=== PATIENT | female | born 1940 | race Caucasian/White ===

== ENCOUNTER 2017-05-26 11:14 | Emergency (ER) | payer MEDICARE, OTHER, SELFPAY ==
[2017-05-26 11:14] VITALS: BP 154/58; PULSE 92; RESP 22; TEMP 37.1; O2SAT 94; BMI 31.1
--- NOTE | 2017-05-26 11:25 | CT_ITS ---
CT head/brain wo con COMPARISON: None HISTORY: Patient fell hitting head, has recurrent falls, mental confusion TECHNIQUE: Multiaxial scans obtained from base skull to the vertex and were performed without IV contrast. FINDINGS: The base of skull is normal, the mastoids are clear. Both internal auditory canals appear normal. There is a tiny mucous retention cyst left maxillary sinus. The basilar cisterns are mildly prominent. The ventricular system is normal. There is no ischemic infarct or bleed and there are no extra-axial fluid collections. There are mild periventricular hypodensities consistent with chronic ischemic white matter changes. The sylvian fissures and cortical sulci are mildly prominent. The bony calvarium is intact. IMPRESSION: Findings of mild age-appropriate cortical atrophy and mild chronic white matter changes, no acute intracranial pathology noted
--- NOTE | 2017-05-26 11:25 | XR_ITS ---
XR chest portable COMPARISON: None HISTORY: Cough TECHNIQUE: Portable upright chest FINDINGS: The lung bird are fairly well-expanded and appear clear of infiltrate. There is blunting of the right costo phrenic angle with minimal pleural scarring along the right lower lateral chest wall cardiac size is normal and the vascularity is normal. IMPRESSION: Nonacute chest findings
[2017-05-26 11:31] LABS: Microscopic, Urine URINE MICROSCOPIC (MICROSCOPIC)
[2017-05-26 11:35] LABS: Basophils % 0.3 % (0.1-2.0); Eosinophils # 0.1 K/mm3 (0.0-0.4); Eosinophils % 0.7 % (0.1-12.0); Hematocrit 41.7 % (37.0-47.0); Hemoglobin 13.8 g/dL (12.2-16.2); Lymphocytes # 1.4 K/mm3 (0.7-4.5); Mean Corpuscular HGB Conc 33.1 g/dL (31.8-35.4); Mean Corpuscular Hemoglobin 30.3 pg (27.0-31.2); Mean Corpuscular Volume 91.6 fl (81-99); Mean Platelet Volume 8.6 fl (7.4-10.4); Monocytes # 0.5 K/mm3 (0.1-1.0); Monocytes % 4.8 % (1.7-9.3); Neutrophils # 8.6 K/mm3 (1.8-7.8); Neutrophils % 81.1 % (37.0-80.0); Platelet Count 225 K/mm3 (142-424); Red Blood Count 4.55 M/mm3 (4.20-5.40); Red Cell Distribution Width 13.5 % (11.5-17.5); White Blood Count 10.7 K/mm3 (4.8-10.8)
[2017-05-26 11:39] LABS: Appearance,Urine CLOUDY (Clear); Bilirubin,Urine Negative (Negative); Blood, Urine Negative (Negative); Color,Urine YELLOW (Yellow); Glucose,Urine (UA) Negative (Negative); Ketones,Urine Negative (Negative); Leukocyte Esterase,Urine 1+ (Negative); Nitrate,Urine POSITIVE (Negative); Protein,Urine TRACE (Negative); Specific Gravity, Urine 1.025 (1.005-1.030); Urobilinogen,Urine 0.2 EU/dl (0.2)
--- NOTE | 2017-05-26 11:45 | PC.NURSE ---
Pt arrived at at this time, reported that he would like to speak with someone regarding prison placement for his . states pt has become increasingly weak over the past year and has been falling more frequently recently. states I can't handle her at home anymore.
[2017-05-26 11:48] LABS: Amorphous Sediment,Urine 1+ /lpf; Bacteria,Urine 3+ /lpf; RBC,Urine Occasional #/hpf (0-3); WBC,Urine 20-50 #/hpf (0-3)
[2017-05-26 11:54] LABS: Alanine Aminotransferase 19 U/L (12-78); Albumin Level 3.8 gm/dL (3.4-5.0); Albumin/Globulin Ratio 1.1 (1.1-1.8); Alkaline Phosphatase 111 U/L (46-116); Anion Gap 11.7 mEq/L (5-15); Aspartate Amino Transferase 19 U/L (15-37); Bilirubin,Total 0.3 mg/dL (0.2-1.0); Blood Urea Nitrogen 27 mg/dL (7-18); Calcium 8.9 mg/dL (8.5-10.1); Carbon Dioxide 28 mmol/L (21.0-32.0); Chloride 108 mmol/L (98-107); Creatinine Clearance Estimated 2 mL/min (0-300); Creatinine,Serum 0.59 mg/dL (0.55-1.02); Estimated Glomerular Filt Rate 99 ml/min (>60); GFR (African American) 119 ML/MIN (>60); Globulin 3.4 gm/dl (1.3-3.2); Glucose 110 mg/dL (74-106); Potassium 3.7 mmoL/L (3.5-5.1); Sodium 144 mmol/L (136-145); Total Protein,Serum 7.2 gm/dL (6.4-8.2)
--- NOTE | 2017-05-26 12:15 | PC.NURSE ---
Dr. Ayala called on CT results at this time, stated Mild Atrophy, nothing acute, notified ER
[2017-05-26 12:16] VITALS: BP 152/64; PULSE 84; RESP 18; O2SAT 93
--- NOTE | 2017-05-26 12:50 | [facility]H.EDWEAK ---
ED Disposition Clinical Impression: Frequent falls UTI (urinary tract infection) Qualifiers: Urinary tract infection type: acute cystitis Hematuria presence: without hematuria Qualified Code(s): N30.00 - Acute cystitis without hematuria Disposition: Home, Self-Care Condition on Discharge: Good Instructions: DI for Urinary Tract Infection (UTI), DI for Muscle Weakness Additional Instructions: You are being transferred to [facility]. Prescriptions: Nitrofurantoin Monohyd/M-Cryst [Nitrofurantoin M[place]-Mcr 100 mg] 100 mg PO BID #14 cap Time of Disposition: 13:26 - Critical Care Critical Care Time: No Attestation: On 05/26/17, the high probability of a clinically significant, sudden or life threatening deterioration of the following system(s) required my full and direct attention, intervention and personal management. The time I documented below is in addition to time spent performing reported procedures but includes the following listed in this critical care notation. Medical Decision Making - Medical Records Medical records reviewed: Yes: I reviewed the patient's medical records. - Shan Inquiry Pt receiving controlled substance: No Vital Signs: 05/26/17 11:14 05/26/17 12:16 05/26/17 14:57 Temperature 98.8 F 98.6 F Temperature Source Oral Oral Pulse Rate 80 Pulse Rate [Right Brachial] 92 H 84 Respiratory Rate 22 18 20 Blood Pressure 150/68 Blood Pressure [Right Arm] 154/58 152/64 Blood Pressure Mean [Right Arm] 90 93 Blood Pressure Source Automatic Cuff Blood Pressure Source [Right Arm] Automatic Cuff Automatic Cuff Blood Pressure Position Sitting Blood Pressure Position [Right Arm] Supine Sitting 02 Sat by Pulse Oximetry 94 L 93 L Oxygen Delivery Method Room Air Room Air Room Air - Lab Data Lab results reviewed: Yes: I reviewed the patient's lab results. Lab Results 05/26/17 11:00: WBC 10.7, RBC 4.55, Hgb 13.8, Hct 41.7, MCV 91.6, MCH 30.3, MCHC 33.1, RDW 13.5, Plt Count 225, MPV 8.6, Neut % (Auto) 81.1 H, Lymph % (Auto) 13.0, [place] % (Auto) 4.8, Eos % (Auto) 0.7, Baso % (Auto) 0.3, Neut # (Auto) 8.6 H, Lymph # (Auto) 1.4, [place] # (Auto) 0.5, Eos # (Auto) 0.1, Baso # (Auto) 0.0 05/26/17 11:00: Sodium 144, Potassium 3.7, Chloride 108 H, Carbon Dioxide 28, Anion Gap 11.7, BUN 27 H, Creatinine 0.59, Estimated Creat Clear 2, Estimated GFR 99, Est GFR ( Amer) 119, Glucose 110 H, Calcium 8.9, Total Bilirubin 0.3, AST 19, ALT 19, Alkaline Phosphatase 111, Total Protein 7.2, Albumin 3.8, Globulin 3.4 H, Albumin/Globulin Ratio 1.1 05/26/17 11:25: Urine Color Yellow, Urine Appearance Cloudy, Urine pH 6.0, Ur Specific [place] 1.025, Urine Protein Trace, Urine Glucose (UA) Negative, Urine Ketones Negative, Urine Blood Negative, Urine Nitrate Positive, Urine Bilirubin Negative, Urine Urobilinogen 0.2, Ur Leukocyte Esterase 1+ A, Urine RBC Occasional, Urine WBC 20-50, Ur Squamous Epith Cells None, Amorphous Sediment 1+, Urine Bacteria 3+ Result diagrams: 05/26/17 11:00 05/26/17 11:00 Orders (Tests/Meds): ED MEDICATIONS Discontinued Medications Generic Name Dose Route Start Last Admin Trade Name Freq PRN Reason Stop Dose Admin Ceftriaxone Sodium 1 gm/ 50 mls @ 100 mls/hr 05/26/17 13:00 05/26/17 13:02 Sodium Chloride IV 06/09/17 12:59 100 mls/hr Q24H BRIAN Administration Protocol - Radiology Data #1 Image(s): Chest Image Reviewed: Yes I reviewed the patient's radiology results, Yes I reviewed the patient's radiology image Preliminary Findings: Normal/NAD - CT Data CT Scan: Head Time Received: 12:[address] Reviewed: Yes: I have reviewed the patient's CT results, I have viewed the radiologist's interpretation Preliminary Findings: Normal/NAD - ECG Data Tracing #1 I reviewed this ECG and interpreted as documented below: ECG normal with no acute: arrhythmias, ischemia, conduction abnormalities, chamber hypertrophy Normal Sinus Rhythm:
--- NOTE | 2017-05-26 12:59 | PC.NURSE ---
Contacted care management at this time, ER MD request, ER MD at . Spoke with Sultana; stated she would come down and see pt.
--- NOTE | 2017-05-26 13:25 | PC.NURSE ---
Sultana, care management, at BS speaking with pt and .
--- NOTE | 2017-05-26 13:43 | PC.NURSE ---
Staff from [facility] and Sultana care management at speaking with pt and .
--- NOTE | 2017-05-26 14:39 | SW/DCPLANNER ---
Received phone call from ED nurse (Roz West) stating that patients was currently in need of placement for this patient due to not being able to care for patient any longer. At first patient disagreed and became very upset regarding this....after a discussion between myself and patient regarding the risk of being unsteady on feet and history of falls and not being able to stay at home due to not being able to care for her patient agreed to placement. I explained the process to patients regarding patient not having a qualifying stay and agreed. Patient information was faxed to [facility]. Brenda came to visit patient this afternoon in the ED and Brenda has agreed to accept this patient and patient is agreeable to discharge to [facility] today from our ED. Patients will transport this patient to [facility] this afternoon.
[2017-05-26 14:57] VITALS: BP 150/68; PULSE 80; RESP 20; TEMP 37; O2SAT 94
== END 2017-05-26 14:58 | disposition home or self-care (01) ==
PROVIDERS: Emergency Provider Emergency Medicine; Family Provider Family Medicine
DX: N30.00 Acute cystitis without hematuria (principal)
CPT/HCPCS: 70450; 71045; 80053; 81001; 85025; 87086; 87088; 87186; 96365; 99283

== ENCOUNTER → 2018-05-17 15:19 | Outpatient (CLI) | payer MEDICARE, OTHER, SELFPAY ==
[2018-05-17 16:16] LABS: Microscopic, Urine URINE MICROSCOPIC (MICROSCOPIC)
[2018-05-17 16:47] LABS: Appearance,Urine CLOUDY (Clear); Bilirubin,Urine Negative (Negative); Blood, Urine Negative (Negative); Color,Urine YELLOW (Yellow); Glucose,Urine (UA) Negative (Negative); Ketones,Urine Negative (Negative); Leukocyte Esterase,Urine 2+ (Negative); Nitrate,Urine POSITIVE (Negative); Protein,Urine Negative (Negative); Urobilinogen,Urine 0.2 EU/dl (0.2)
[2018-05-17 16:57] LABS: Bacteria,Urine 4+ /lpf; Squamous Epithelial Cell,Urine Occasional #/hpf (0-5); WBC,Urine 20-50 #/hpf (0-3)
== END ==
PROVIDERS: Visit Provider Internal Medicine Adolescent Medicine
DX: N39.0 Urinary tract infection, site not specified (principal)
CPT/HCPCS: 81001; 87086; 87088; 87186

== ENCOUNTER 2018-08-03 11:41 | Emergency (ER) | payer MEDICARE, OTHER, SELFPAY ==
[2018-08-03] VITALS (8 sets, daily range): BP systolic 116–169; BP diastolic 41–80; PULSE 75–93; RESP 24; TEMP 37; O2SAT 90–98; BMI 37.2; BMI 28.1
--- NOTE | 2018-08-03 11:44 | XR_ITS ---
XR chest portable HISTORY: ITS.REASON: soa ORDERING PHYSICIAN: Nestor Lou MD PATIENT AGE: 77 years COMPARISON: Portable upright chest 05/26/2017 FINDINGS: The lung bird are well expanded and appear clear of infiltrate. There is slight lateral elevation right hemidiaphragm and this was noted previously and is blunting of the right costo phrenic angle. This likely is due to post inflammatory scarring though a small subpulmonic pleural effusion cannot be entirely excluded. Cardiac size is normal and the vascularity is normal. There are degenerative changes right AC joint. IMPRESSION: Stable scarring right costo phrenic angle, doubt acute chest pathology
--- NOTE | 2018-08-03 12:00 | PC.NURSE ---
sheirn,savage at bedside attempting to collect blood for labs. no success noted.
--- NOTE | 2018-08-03 12:10 | PC.NURSE ---
vega placed, rectal temp obtained
[2018-08-03 12:19] LABS: ABG HCO3 33.2 mmhg (22.0-26.0); ABG Oxygen Saturation 83 % (90-100); ABG PH 7.38 mmol/L (7.35-7.45)
[2018-08-03 12:23] LABS: Allen's Test Acceptable; Oxygen 21 %; Source Left Radial
[2018-08-03 12:24] LABS: ABG PCO2 57.9 mmhg (35.0-45.0); ABG PO2 49.7 mmhg (80-100)
--- NOTE | 2018-08-03 12:27 | PC.NURSE ---
attempted to obtain iv without success x 4 attempts. unable to collect labs at this time. aware. called warehouse worker 2nd shift, charlene, to come and attempt
--- NOTE | 2018-08-03 12:29 | PC.NURSE ---
quality assurance/r&d lab technician at bedside.
[2018-08-03 12:31] LABS: Appearance,Urine SL CLOUDY (Clear); Bilirubin,Urine Negative (Negative); Blood, Urine TRACE-L (Negative); Color,Urine YELLOW (Yellow); Glucose,Urine (UA) Negative (Negative); Ketones,Urine Negative (Negative); Leukocyte Esterase,Urine TRACE (Negative); Microscopic, Urine URINE MICROSCOPIC (MICROSCOPIC); Nitrate,Urine Negative (Negative); Protein,Urine TRACE (Negative); Specific Gravity, Urine 1.025 (1.005-1.030); Urobilinogen,Urine 0.2 EU/dl (0.2)
[2018-08-03 12:40] LABS: Bacteria,Urine 4+ /lpf
[2018-08-03 13:28] LABS: Basophils % 0.2 % (0.1-2.0); Eosinophils # 0.1 K/mm3 (0.0-0.4); Eosinophils % 0.7 % (0.1-12.0); Hematocrit 36.3 % (37.0-47.0); Hemoglobin 11.8 g/dL (12.2-16.2); Lymphocytes % 10.9 % (10-50); Mean Corpuscular HGB Conc 32.6 g/dL (31.8-35.4); Mean Corpuscular Hemoglobin 30.1 pg (27.0-31.2); Mean Corpuscular Volume 92.5 fl (81-99); Mean Platelet Volume 7.5 fl (7.4-10.4); Monocytes # 0.8 K/mm3 (0.1-1.0); Monocytes % 4.3 % (1.7-9.3); Neutrophils # 15.1 K/mm3 (1.8-7.8); Neutrophils % 83.9 % (37.0-80.0); Platelet Count 366 K/mm3 (142-424); Red Blood Count 3.92 M/mm3 (4.20-5.40); Red Cell Distribution Width 14.5 % (11.5-17.5)
[2018-08-03 13:38] LABS: MANUAL DIFFERENTIAL MANUAL DIFFERENTIAL (MANUAL DIFF)
--- NOTE | 2018-08-03 13:43 | PC.NURSE ---
at the bedside femoral sticking pt. v/s delayed
[2018-08-03 13:47] LABS: Chloride 101 mmol/L (98-107); Troponin I < 0.02 ng/ml (0.00-0.06)
[2018-08-03 13:49] LABS: Lactic Acid 1.6 mmol/L (0.4-2.0)
[2018-08-03 13:51] LABS: Eosinophils % 3 % (0-3); Lymphocytes % 5 % (10-50); Monocytes % 6 % (2-9); Neutrophils % 85 % (42-76); Platelet Estimate Normal; RBC Morphology Normal; Total Cells Counted 100
[2018-08-03 13:56] LABS: D-Dimer 3890 ng/mL (0-400)
--- NOTE | 2018-08-03 13:56 | PC.NURSE ---
notified of potassium and ddimer. received notifications from [facility]
--- NOTE | 2018-08-03 14:14 | PC.NURSE ---
MD states to hold on giving the lasix at this time.
[2018-08-03 14:23] LABS: Sodium 142 mmol/L (136-145)
[2018-08-03 14:24] LABS: Alanine Aminotransferase 23 U/L (12-78); Anion Gap 9.6 mEq/L (5-15); Aspartate Amino Transferase 17 U/L (15-37); Bilirubin,Total 0.3 mg/dL (0.2-1.0); Blood Urea Nitrogen 38 mg/dL (7-18); Calcium 8.3 mg/dL (8.5-10.1); Carbon Dioxide 37 mmol/L (21.0-32.0); Creatinine Clearance Estimated 44 mL/min (50-200); Creatinine,Serum 1.36 mg/dL (0.55-1.02); Estimated Glomerular Filt Rate 38 ml/min (>60); GFR (African American) 45 ML/MIN (>60); Glucose 118 mg/dL (74-106); Total Protein,Serum 6.1 gm/dL (6.4-8.2)
[2018-08-03 14:25] LABS: Albumin Level 2.6 gm/dL (3.4-5.0); Albumin/Globulin Ratio 0.7 (1.1-1.8); Alkaline Phosphatase 84 U/L (46-116); Globulin 3.5 gm/dl (1.3-3.2)
[2018-08-03 14:27] LABS: Potassium 5.6 mmoL/L (3.5-5.1)
--- NOTE | 2018-08-03 14:29 | XR_ITS ---
XR chest portable HISTORY: Shortness of breath ITS.REASON: follow up deep line placement ORDERING PHYSICIAN: Nestor Lou MD PATIENT AGE: 77 years COMPARISON: Portable upright chest same date FINDINGS: The cardiomediastinal silhouette and pulmonary vascularity are within normal limits. The lungs are clear without infiltrates, suspicious nodules, or pleural effusions. The Mediport catheter seen entering the right subclavian vein with the tip at the junction of the SVC with right atrium. There is no pneumothorax. Stable blunting of the right costophrenic angles noted with elevation of the right hemidiaphragm. No acute bony abnormalities. IMPRESSION: Satisfactory placement of deep line IV.
--- NOTE | 2018-08-03 14:34 | CT_ITS ---
CT angio chest Ordering Physician: Nestor Lou MD Patient Age: 77 years: Female HISTORY: ITS.REASON: dyspnea, elevated d-dimer abdominal pain TECHNIQUE: In section Helical CTA acquisition performed the chest with no oral nor IV following Past delayed to optimally visualized pulmonary arteries. Vast majority of the contrast as this is within the left heart and arterial structures CT scans at this facility used one or more dose reduction techniques , viz: automatic exposure control, ma/Kv adjustment per patient's size, (including targeted exam where dose matched to the indication; i.e. head); or iterative reconstruction technique COMPARISON :CT abdomen 2016 FINDINGS 50 cc IV contrast, 75 cc Optiray 350 was utilized with diminished bolus right with suggested by Dr. Ayala due to the compromise renal function with GR =38& BUN 38contrast volume with patient's GFR 38, & BUN 38. However central line was also with tip the central line at SVC. This is a ultrasound in although some adjustment was made and does not appear enough as the majority of the contrast is a within the aortic arch & arterial structures with only faint contrast within pulmonary arteries. This yields suboptimal visualization of pulmonary arteries and in addition to some streak artifact due to motion and patient's arm down by her side. However the central pulmonary arteries to contain [id number] contrast and there is no good evidence of pulmonary embolism Although the study is limited I see no areas highly suspect areas for pulmonary embolism. Mild enhancement of pulmonary arteries best visualized at the main pulmonary arteries and centrally. No significant filling defects either hilar region hilar regions.. I would note: The arteries is a generous in size bilaterally. There is some streak artifact particularly accounting for some transverse areas of low density at the LLL pulmonary artery but I believe this is due to motion along with streak artifact from overlying arms with reviewing the the coronal and sagittal views. Mild bilateral airspace disease findings most evident on right.. Decreased lung volume on right no definitive postsurgical clips. Most prominent findings are seen towards the right lung base and towards right posterior sulcus.; with minimal patchy infiltrate & atelectasis/right at posterior right lung base, (for example sagittal image 47-52, axial 12-14 & coronal images 52-58). No pleural effusion on either right or left. The Subtle slight blunting at the posterior sulcusappears stable since 2016 No significant pleural effusion on right or left . Left base. Mild peribronchial thickening & minor peribronchial inflammation suspect at left infrahilar region. Any wheezing here on the left?. Area of scant patchy airspace disease posterior LLL axial image 89-91 cm; sagittal image 66 ..Clinical correlation required . Also suggestion of a few very subtle/minimal areas patchy minimal tree-in-bud patchy infiltrate at the posterior posterior RUL,. Likely reflecting mild inflammatory changes. No previous CT chest for comparison. ( Axial image 31-33. The sagittal image 39), . The central pulmonary arteries best visualized generous in size but I see no discrete intraluminal filling defect. If high clinical suspicion persist regarding such the main more to consider a follow-up CT chest in contrast to morning after further hydration for more optimal timing and pulmonary enhancement Mediastinum Mild cardiomegaly with a prominent coronary artery calcification most evident LAD, circumflex and to lesser degree right coronary. If the aorta is normal caliber no aneurysm. After trying calcification at aortic arch particularly at origin of great vessels. Some minor restriction but no significant stenosis. Central li
--- NOTE | 2018-08-03 14:34 | CT_ITS ---
CT abdomen pelvis w con INDICATION: Abdominal pain. Nausea. ITS.REASON: dyspnea, elevated d-dimer ORDERING PHYSICIAN: Nestor Lou MD PATIENT AGE: 77 years COMPARISON: CT abdomen from February 2016 . TECHNIQUE: 50 cc IV Optiray 350 contrast utilized with helical scanning through the abdomen following the CTA chest study Axial images obtained with sagittal and coronal reformats. All CT scans at the facility use one or more dose reduction, viz: automated exposure control, ma/kV adjustment per patient size (including targeted exams where dose is matched to indication, i.e. head), or iterative reconstruction technique. FINDINGS: A increased streak artifact from arms along the patient side bilaterally. On did not significantly interfere significant observation that the abdomen Liver, spleen, pancreas, appear satisfactory. Gallbladder. Generous caliber. Likely minimal layering sludge posteriorly No biliary ductal dilatation no pancreatic duct dilatation. No retroperitoneal nor adenopathy. tract. No urinary tract obstruction. We are likely again some early enhancement in see no definitive calculi or obstructive uropathy in the ureters appear normal in caliber. Pelvis hysterectomy. Kap[place]ia catheter in place. Minimal free fluid at pelvis to the left of the rectum and left colon sac. GI tract. \ Distal Small bowel obstruction secondary to ventral hernia here inferior to the umbilicus. The mouth of this hernia measures approximately 2.1 cm height X 2.9 cm wide. Dilated small bowel loop along with some mildly inflamed omentum is seen extending to the hernia sac. Hernia sac measures up to 5 cm height.. Findings may reflect developing incarcerated hernia. Clinical correlation required.. There is small bowel obstruction proximal this point-due to the obstruction here. Fluid-filled dilated small bowel loops proximal is point measuring very 3 cm with some bowel loops measuring up to up to 4 cm diameter. A fluid-filled stomach. Previously mentioned Fluid-filled esophagus may be related to obstruction as well There is some wispy edema in the omentum and mesentery leading to this hernia. . Large bowel . Slight hazy appearance at the fat towards the right lower quadrantq towards the cecum is noted as well. Appendix appears normal At this hernia nvolves the ileum approximately 10 cm from the ileocecal valve with this the terminal ileum appears more normal but there is some hazy stranding in the fat surrounding the distal ileum/terminal ileum towards RLQ. Mild distended stool-filled rectum up to 5.2 cm diameter. I'm surprised is not been more clearing of stool from the rectum into this obstruction Extensive diverticulosis in sigmoid colon & descending colon. No focal diverticulitis The remainder of the large bowel is fairly empty likely secondary to obstruction otherwise.... Lumbar spine degenerative changes are similar to 2016. Again the old compression fracture inferior L4 is noted with generous grade 1 anterior listhesis of L4-L5 and prominent facet arthropathy, hypertrophy throughout the lower L-spine. IMPRESSION......... 1. Distal small bowel obstruction due to secondary to a ventral hernia inferior to the umbilicus. Restriction of small bowel at Hernia Sac which contains a loop of dilated fluid-filled ileum,-approximately 10 cm proximal to the ileocecal valve. There is inflammation with in the omentum within and leading to this hernia sac as well as some mild stranding of fat surrounding bowel upwards RLQ including pericecal fat cecum. This suggests regional inflammation . Findings suspect for developing incarcerated hernia.. Surgical correlation required. 2. Minimal free fluid at the pelvis. 3. Other minor observations in text . generous marii b
--- NOTE | 2018-08-03 14:36 | HMH.EDGENADL ---
ED Disposition Clinical Impression: Acute respiratory failure with hypoxia Disposition: Xfer Short-Term Hosp Condition on Discharge: Serious Referrals: Yassine Monique MD [Primary Care Provider] - Time of Disposition: 18:35 - Critical Care Critical Care Time: No Attestation: On 08/03/18, the high probability of a clinically significant, sudden or life threatening deterioration of the following system(s) required my full and direct attention, intervention and personal management. The time I documented below is in addition to time spent performing reported procedures but includes the following listed in this critical care notation. Medical Decision Making - Medical Records Medical records reviewed: Yes: I reviewed the patient's medical records. - Shan Inquiry Pt receiving controlled substance: No Shan was queried for this patient: No Vital Signs: 08/03/18 11:42 08/03/18 12:29 08/03/18 15:32 Pulse Rate [Left Radial] 88 88 75 Respiratory Rate 24 Blood Pressure [Right Arm] 138/77 139/80 144/66 H Blood Pressure Mean [Right Arm] 97 99 92 Blood Pressure Source [Right Arm] Automatic Cuff Automatic Cuff Automatic Cuff Blood Pressure Position [Right Arm] Sitting Sitting Supine 02 Sat by Pulse Oximetry 98 90 L 97 Oxygen Delivery Method Non-Rebreather 08/03/18 15:59 08/03/18 16:30 08/03/18 18:03 Pulse Rate [Left Radial] 89 87 87 Respiratory Rate Blood Pressure [Right Arm] 116/41 L 146/80 H 168/77 H Blood Pressure Mean [Right Arm] 66 102 107 Blood Pressure Source [Right Arm] Blood Pressure Position [Right Arm] 02 Sat by Pulse Oximetry 97 93 L 94 L Oxygen Delivery Method Nasal Cannula - Lab Data Lab results reviewed: Yes: I reviewed the patient's lab results. Lab Results 08/03/18 11:45: Urine Color Yellow, Urine Appearance Sl cloudy, Urine pH 6.0, Ur Specific [place] 1.025, Urine Protein Trace, Urine Glucose (UA) Negative, Urine Ketones Negative, Urine Blood Trace-l, Urine Nitrate Negative, Urine Bilirubin Negative, Urine Urobilinogen 0.2, Ur Leukocyte Esterase Trace, Urine WBC 10-20, Ur Squamous Epith Cells 10-20, Urine Bacteria 4+ 08/03/18 11:48: Specimen Source Left radial, O2 % 21, ABG pH 7.38, ABG pCO2 57.9 H, ABG pO2 49.7 L, ABG HCO3 33.2 H, ABG Total CO2 35.0 H, ABG O2 Saturation 83 L*, ABG Base Excess 8.0 H, Dmitry Test Acceptable 08/03/18 13:00: WBC 18.0 H, RBC 3.92 L, Hgb 11.8 L, Hct 36.3 L, MCV 92.5, MCH 30.1, MCHC 32.6, RDW 14.5, Plt Count 366, MPV 7.5, Neut % (Auto) 83.9 H, Lymph % (Auto) 10.9, [place] % (Auto) 4.3, Eos % (Auto) 0.7, Baso % (Auto) 0.2, Neut # (Auto) 15.1 H, Lymph # (Auto) 2.0, [place] # (Auto) 0.8, Eos # (Auto) 0.1, Baso # (Auto) 0.0, Total Counted 100, Neutrophils % (Manual) 85 H, Lymphocytes % (Manual) 5 L, Atypical Lymphs % 1.0, Monocytes % (Manual) 6, Eosinophils % (Manual) 3, Platelet Estimate Normal, RBC Morphology Normal 08/03/18 13:00: Sodium 142, Potassium 5.6 H, Chloride 101, Carbon Dioxide 37 H, Anion Gap 9.6, BUN 38 H, Creatinine 1.36 H, Estimated Creat Clear 44, Estimated GFR 38 L, Est GFR ( Amer) 45 L, Glucose 118 H, Calcium 8.3 L, Total Bilirubin 0.3, AST 17, ALT 23, Alkaline Phosphatase 84, Troponin I < 0.02, Total Protein 6.1 L, Albumin 2.6 L, Globulin 3.5 H, Albumin/Globulin Ratio 0.7 L 08/03/18 13:00: Lactate 1.6 08/03/18 13:15: D-Dimer 3890 H* 08/03/18 13:15: B-Natriuretic Peptide 39 Result diagrams: 08/03/18 13:00 08/03/18 13:00 Orders (Tests/Meds): ED MEDICATIONS Generic Name Dose Route Start Last Admin Trade Name Freq PRN Reason Stop Dose Admin Albuterol/Ipratropium 3 ml 08/03/18 18:00 Duoneb 3ml Neb IH 09/02/18 17:59 Q4H BRIAN Discontinued Medications Generic Name Dose Route Start Last Admin Trade Name Freq PRN Reason Stop Dose Admin Furosemide 60 mg 08/03/18 11:52 08/03/18 15:11 Lasix 40mg/4ml Vial IV 08/03/18 11:53 Not Given ONCE ONE Ampicillin Sodium/Sulbactam 100 mls @ 200 mls/hr 08/03/18 18:20 Sodi
--- NOTE | 2018-08-03 14:39 | ED_ITS ---
ED Disposition Clinical Impression: Acute respiratory failure with hypoxia Disposition: Xfer Short-Term Hosp Condition on Discharge: Serious Referrals: Yassine Monique MD [Primary Care Provider] - Time of Disposition: 18:35 - Critical Care Critical Care Time: No Attestation: On 08/03/18, the high probability of a clinically significant, sudden or life threatening deterioration of the following system(s) required my full and direct attention, intervention and personal management. The time I documented below is in addition to time spent performing reported procedures but includes the following listed in this critical care notation. Medical Decision Making - Medical Records Medical records reviewed: Yes: I reviewed the patient's medical records. - Shan Inquiry Pt receiving controlled substance: No Shan was queried for this patient: No Vital Signs: 08/03/18 11:42 08/03/18 12:29 08/03/18 15:32 Pulse Rate [Left Radial] 88 88 75 Respiratory Rate 24 Blood Pressure [Right Arm] 138/77 139/80 144/66 H Blood Pressure Mean [Right Arm] 97 99 92 Blood Pressure Source [Right Arm] Automatic Cuff Automatic Cuff Automatic Cuff Blood Pressure Position [Right Arm] Sitting Sitting Supine 02 Sat by Pulse Oximetry 98 90 L 97 Oxygen Delivery Method Non-Rebreather 08/03/18 15:59 08/03/18 16:30 08/03/18 18:03 Pulse Rate [Left Radial] 89 87 87 Respiratory Rate Blood Pressure [Right Arm] 116/41 L 146/80 H 168/77 H Blood Pressure Mean [Right Arm] 66 102 107 Blood Pressure Source [Right Arm] Blood Pressure Position [Right Arm] 02 Sat by Pulse Oximetry 97 93 L 94 L Oxygen Delivery Method Nasal Cannula - Lab Data Lab results reviewed: Yes: I reviewed the patient's lab results. Lab Results 08/03/18 11:45: Urine Color Yellow, Urine Appearance Sl cloudy, Urine pH 6.0, Ur Specific [place] 1.025, Urine Protein Trace, Urine Glucose (UA) Negative, Urine Ketones Negative, Urine Blood Trace-l, Urine Nitrate Negative, Urine Bilirubin Negative, Urine Urobilinogen 0.2, Ur Leukocyte Esterase Trace, Urine WBC 10-20, Ur Squamous Epith Cells 10-20, Urine Bacteria 4+ 08/03/18 11:48: Specimen Source Left radial, O2 % 21, ABG pH 7.38, ABG pCO2 57.9 H, ABG pO2 49.7 L, ABG HCO3 33.2 H, ABG Total CO2 35.0 H, ABG O2 Saturation 83 L*, ABG Base Excess 8.0 H, Dmitry Test Acceptable 08/03/18 13:00: WBC 18.0 H, RBC 3.92 L, Hgb 11.8 L, Hct 36.3 L, MCV 92.5, MCH 30.1, MCHC 32.6, RDW 14.5, Plt Count 366, MPV 7.5, Neut % (Auto) 83.9 H, Lymph % (Auto) 10.9, [place] % (Auto) 4.3, Eos % (Auto) 0.7, Baso % (Auto) 0.2, Neut # (Auto) 15.1 H, Lymph # (Auto) 2.0, [place] # (Auto) 0.8, Eos # (Auto) 0.1, Baso # (Auto) 0.0, Total Counted 100, Neutrophils % (Manual) 85 H, Lymphocytes % (Manual) 5 L, Atypical Lymphs % 1.0, Monocytes % (Manual) 6, Eosinophils % (Manual) 3, Platelet Estimate Normal, RBC Morphology Normal 08/03/18 13:00: Sodium 142, Potassium 5.6 H, Chloride 101, Carbon Dioxide 37 H, Anion Gap 9.6, BUN 38 H, Creatinine 1.36 H, Estimated Creat Clear 44, Estimated GFR 38 L, Est GFR ( Amer) 45 L, Glucose 118 H, Calcium 8.3 L, Total Bilirubin 0.3, AST 17, ALT 23, Alkaline Phosphatase 84, Troponin I < 0.02, Total Protein 6.1 L, Albumin 2.6 L, Globulin 3.5 H, Albumin/Globulin Ratio 0.7 L 08/03/18 13:00: Lactate 1.6 08/03/18 13:15: D-Dimer [id number] H* 08/03/18 13:15: B-Natriuretic Peptide 39 Result diagrams:
--- NOTE | 2018-08-03 16:06 | PC.NURSE ---
Pt to radiology
--- NOTE | 2018-08-03 16:32 | PC.NURSE ---
pt return to ct
--- NOTE | 2018-08-03 18:25 | PC.NURSE ---
speaking with [facility]
--- NOTE | 2018-08-03 18:52 | XR_ITS ---
XR chest portable HISTORY: ITS.REASON: ng tube placement ORDERING PHYSICIAN: Nestor Lou MD PATIENT AGE: 77 years COMPARISON: Portable upright chest 2:41 PM same date FINDINGS: The cardiomediastinal silhouette and pulmonary vascularity are within normal limits. The right side deep line remains in good position. There is an NG tube seen descending the esophagus however it is double back on itself approximately the level of the alonzo. And should be withdrawn and reinserted to attempt to reach normal position within the stomach. The lungs are clear without infiltrates, suspicious nodules, or pleural effusions. There is persistent lateral elevation of the right hemidiaphragm with blunting of the right costo phrenic angle. No acute bony abnormalities. IMPRESSION: NG tube doubled back on itself at the level of the alonzo and in view of the fluid-filled esophagus seen on the recent CT scan performed earlier in the afternoon esophageal obstruction is a possibility. However suggest repeat attempt at inserting the NG tube
== END 2018-08-03 19:26 | disposition short-term general hospital (02) ==
PROVIDERS: Emergency Provider Emergency Medicine; PCP Internal Medicine Adolescent Medicine
DX: J96.01 Acute respiratory failure with hypoxia (principal); K46.0 Unspecified abdominal hernia with obstruction, without gangrene; E87.5 Hyperkalemia; J44.9 Chronic obstructive pulmonary disease, unspecified; Z87.891 Personal history of nicotine dependence; N39.0 Urinary tract infection, site not specified
CPT/HCPCS: 36556; 71045; 71275; 74177; 80053; 81001; 82803; 83605; 83880; 84484; 85007; 85025; 85378; 87040; 87077; 87086; 87088; 87186; 93005; 96365; 96375; 99285; C1751; Q9967

== ENCOUNTER 2018-11-19 10:03 | Inpatient (IN) ==
--- NOTE | 2018-11-19 10:23 | Emergency Department Note ---
ED Disposition Clinical Impression: Hypercapnic respiratory failure, Acute exacerbation of chronic obstructive airways disease, Aspiration pneumonia Disposition: Admitted as Observation Condition on Discharge: Fair Referrals: Yassine Monique MD [Primary Care Provider] - Time of Disposition: 13:16 - Critical Care Critical Care Time: No Attestation: On , the high probability of a clinically significant, sudden or life threatening deterioration of the following system(s) required my full and direct attention, intervention and personal management. The time I documented below is in addition to time spent performing reported procedures but includes the following listed in this critical care notation. Medical Decision Making - Medical Records Medical records reviewed: Yes: I reviewed the patient's medical records. - Shan Inquiry Pt receiving controlled substance: No Shan was queried for this patient: No Risks and benefits of using a controlled substance: were not discussed with pt by me Vital Signs: 11/19/18 10:04 11/19/18 10:10 11/19/18 11:34 Temperature 97.7 F Temperature Source Oral Pulse Rate [Left Radial] 77 Respiratory Rate 24 Blood Pressure [Right Arm] 159/112 H Blood Pressure Mean [Right Arm] 127 Blood Pressure Source [Right Arm] Automatic Cuff Blood Pressure Position [Right Arm] Sitting 02 Sat by Pulse Oximetry 86 L 97 Oxygen Delivery Method Room Air Nasal Cannula Nasal Cannula Oxygen Flow Rate (LPM) 4 3 11/19/18 11:45 Temperature Temperature Source Pulse Rate [Left Radial] 67 Respiratory Rate Blood Pressure [Right Arm] 150/56 H Blood Pressure Mean [Right Arm] 87 Blood Pressure Source [Right Arm] Automatic Cuff Blood Pressure Position [Right Arm] Supine 02 Sat by Pulse Oximetry 99 Oxygen Delivery Method Oxygen Flow Rate (LPM) - Lab Data Lab results reviewed: Yes: I reviewed the patient's lab results. Lab Results 11/19/18 11:09: Specimen Source R radial, O2 % 3lpm, ABG pH 7.29 L, ABG pCO2 80.7 H, ABG pO2 100.8 H, ABG HCO3 37.9 H, ABG Total CO2 40.4 H, ABG O2 Saturation 97, ABG Base Excess 11.4 H, Dmitry Test Acceptable 11/19/18 11:45: Lactate 1.1 11/19/18 12:20: WBC 7.7, RBC 3.44 L, Hgb 10.6 L, Hct 33.2 L, MCV 96.5, MCH 30.9, MCHC 32.1, RDW 14.7, Plt Count 208, MPV 7.9, Neut % (Auto) 77.4, Lymph % (Auto) 15.2, [place] % (Auto) 6.3, Eos % (Auto) 0.9, Baso % (Auto) 0.2, Neut # (Auto) 6.0, Lymph # (Auto) 1.2, [place] # (Auto) 0.5, Eos # (Auto) 0.1, Baso # (Auto) 0.0 11/19/18 12:20: B-Natriuretic Peptide 451 H Result diagrams: 11/19/18 12:20 Orders (Tests/Meds): ED MEDICATIONS Discontinued Medications Generic Name Dose Route Start Last Admin Trade Name Freq PRN Reason Stop Dose Admin Albuterol/Ipratropium 3 ml 11/19/18 10:11 11/19/18 11:10 Duoneb 3ml Neb IH 11/19/18 10:12 3 ml ONCE ONE Administration Methylprednisolone Sodium Succinate 125 mg 11/19/18 10:11 11/19/18 11:14 Solu-Medrol 125mg/2ml Vial IV 11/19/18 10:12 125 mg ONCE ONE Administration ORDERS Category Date Time Status Comprehensive Metabolic Panel Stat Lab 11/19/18 12:20 Received Trop I [Troponin I] Stat Lab 11/19/18 12:20 Received Blood Culture Stat Micro 11/19/18 11:45 Received General Adult HPI - General Stated complaint: SOA Time Seen by Provider: 11/19/18 10:08 Mode of Arrival: EMS Source of Information: EMS Limitations: Physical Limitations - History of Present Illness HPI narrative: worsening dyspnea, copd exacerbation currently treated with augmentin and prednisone. Today, gargling with drop in sats. - Related Data Home Medications Medication Instructions Recorded Confirmed Gabapentin [Gabapentin 300mg Cap] 300 mg PO TID 05/26/17 11/19/18 Levothyroxine Sodium [Synthroid 75 mcg PO DAILY 05/26/17 11/19/18 50mcg (0.05mg) tab] Losartan Potassium [Cozaar] 100 mg PO DAILY 05/26/17 11/19/18 acetaminophen 500 mg tablet 500 mg PO Q6H PRN 09/15/17 11/19/18 albuterol sulfate HFA 90 1 puff INHALATION Q4-6H PRN 09/15/17 11/19/18 mcg/actuation aerosol inhaler furosemide 40 mg tablet 40 mg PO TID 09/15/17 11/19/18 metoprolol tartrate 50 mg tablet 25 mg PO BID tab 09/15/17 11/19/18 potassium chloride 20 mEq oral 20 meq PO DAILY each 09/15/17 11/19/18 packet Citalopram Hydrobromide [Celexa 10 mg PO HS 09/06/18 11/19/18 10mg Tablet] Ipratropium/Albuterol Sulfate 3 ml IH TID 09/06/18 11/19/18 [Iprat-Albut 0.5-3(2.5) mg/3 ml] Multivit with Calcium,Iron,Min 1 each PO DAILY 09/06/18 11/19/18 [Essential Daily] predniSONE [Prednisone 20mg 20 mg PO BID 11/19/18 11/19/18 Tab] Allergies Allergy/AdvReac Type Severity Reaction Status Date / Time ARTHRITIS DRUGS Allergy Mild Uncoded 02/25/17 15:10 [facility] History - Hepatitis A Screen Attestation statement:: This patient has been screened for Hepatitis A risk factors. I have reviewed the patient's past medical history: Yes Medical History: Reports:: Chronic Obstructive Pulmonary Disease (COPD) Denies:: Diabetes Mellitus Type 1, Diabetes Mellitus Type 2 Other Medical History: Reports: Arthritis Amputation: No - Social History Smoking Status: Former smoker Alcohol Intake: never Alcohol Intake Frequency:: other Substance Use Type: denies use Occupational Status: retired ROS Obtained: Yes All systems reviewed & no additional complaints, Yes unobtainable due to mental status - Constitutional Constitutional: Denies fever(s), Reports lethargy - ENT Ears, Nose, Mouth, and Throat: Denies neck mass, Denies neck pain - Cardiovascular Cardiovascular: Denies chest pain, Denies chest pain at rest, Reports dyspnea - Respiratory Respiratory: Yes cough, Yes dyspnea, Yes dyspnea on exertion - Gastrointestinal Gastrointestingal: Denies: abdominal pain - Musculoskeletal Musculoskeletal: Denies joint pain, Denies joint stiffness, Denies joint swelling - Integumentary/Breasts Skin/Breast: Denies rash, Denies skin pain - Neurologic Neurologic: Denies seizure-like activity, Denies syncope - Hematologic/Lymphatic Henatologic/Lymphatic: Denies easy bleeding, Reports easy bruising Physical Exam - General General appearance: alert, in distress, other (moaning,gargling breath sounds) - Head Head exam: atraumatic, normocephalic, normal inspection - Eye Eye exam: Present: normal appearance, PERRL, EOMI - ENT ENT exam: Present: normal exam, normal oropharynx, mucous membranes moist, TM's normal bilaterally, normal external ear exam - Neck Neck exam: Present: normal inspection, full ROM, trachea midline. Absent: meningismus, lymphadenopathy - Respiratory Respiratory exam: Present: wheezes, other (rhonchi throughout) - Cardiovascular Cardiovascular exam: Present: regular rate, normal rhythm - Abdominal Exam Abdominal exam: Present: soft. Absent: distention, tenderness, guarding - Extremities Exam Extremities exam: Present: normal inspection, full ROM, normal capillary refill. Absent: calf tenderness - Neurological Exam Neurological exam: Present: alert, oriented X3, CN II-XII intact - Psychiatric Psychiatric exam: Present: normal affect, normal mood - Skin Skin exam: Present: warm, dry, intact, normal color
[2018-11-19 11:23] LABS: ABG Base Excess 11.4 mmol/L (-2.4-2.3); ABG HCO3 37.9 mmhg (22.0-26.0); ABG Oxygen Saturation 97 % (90-100); ABG PH 7.29 mmol/L (7.35-7.45); ABG PO2 100.8 mmhg (80-100); ABG TCO2 40.4 mmhg (23-27)
[2018-11-19 11:25] LABS: Allen's Test ACCEPTABLE; Oxygen 3LPM %
[2018-11-19 11:27] LABS: ABG PCO2 80.7 mmhg (35.0-45.0)
[2018-11-19 12:26] LABS: Basophils % 0.2 % (0.1-2.0); Eosinophils # 0.1 K/mm3 (0.0-0.4); Eosinophils % 0.9 % (0.1-12.0); Hematocrit 33.2 % (37.0-47.0); Hemoglobin 10.6 g/dL (12.2-16.2); Lymphocytes # 1.2 K/mm3 (0.7-4.5); Lymphocytes % 15.2 % (10-50); Mean Corpuscular HGB Conc 32.1 g/dL (31.8-35.4); Mean Corpuscular Volume 96.5 fl (81-99); Mean Platelet Volume 7.9 fl (7.4-10.4); Monocytes # 0.5 K/mm3 (0.1-1.0); Monocytes % 6.3 % (1.7-9.3); Neutrophils % 77.4 % (37.0-80.0); Platelet Count 208 K/mm3 (142-424); Red Blood Count 3.44 M/mm3 (4.20-5.40); Red Cell Distribution Width 14.7 % (11.5-17.5); White Blood Count 7.7 K/mm3 (4.8-10.8)
[2018-11-19 13:16] LABS: Anion Gap 10.5 mEq/L (5-15)
[2018-11-19 13:17] LABS: Albumin Level 3.1 gm/dL (3.4-5.0); Albumin/Globulin Ratio 0.9 (1.1-1.8); Bilirubin,Total 0.2 mg/dL (0.2-1.0); Calcium 8.4 mg/dL (8.5-10.1); Globulin 3.3 gm/dl (1.3-3.2); Total Protein,Serum 6.4 gm/dL (6.4-8.2)
[2018-11-19 16:04] LABS: Microscopic, Urine URINE MICROSCOPIC (MICROSCOPIC)
[2018-11-19 16:06] LABS: Appearance,Urine CLEAR (Clear); Bilirubin,Urine Negative (Negative); Blood, Urine Negative (Negative); Color,Urine YELLOW (Yellow); Glucose,Urine (UA) Negative (Negative); Ketones,Urine Negative (Negative); Leukocyte Esterase,Urine Negative (Negative); Protein,Urine Negative (Negative); Urobilinogen,Urine 0.2 EU/dl (0.2)
[2018-11-19 16:18] LABS: WBC,Urine Occasional #/hpf (0-3)
--- NOTE | 2018-11-19 17:53 | History & Physical Report ---
*Admission Date: 11/19/18 *Chief complaint: confusion *History of present illness: Ms. Crespo is an 78-year-old female with multiple comorbidities who presented from a snf to the ER due to worsening confusion and altered mental status. She was started earlier this week on Friday on antibiotics and steroids for concern for respiratory infection. At time of assessment in the ER she was found to have hypercarbia and respiratory failure. Additionally has a degree of CHF with elevated BNP. Patient unable to give review of systems or significant history due to confusion. She is pleasant however and smiles on interview but is unable to provide much information. Admitted to medicine for further m anagement. [facility] History I have reviewed the patient's past medical history: Yes Medical History: Reports:: Chronic Obstructive Pulmonary Disease (COPD) Denies:: Diabetes Mellitus Type 1, Diabetes Mellitus Type 2 *Have you ever received a pneumonia vaccine?: Yes *Have you received a flu vaccine this season?: Yes Other Medical History: Reports: Arthritis Amputation: No - *Social History Smoking Status: Former smoker Tobacco Type: cigarettes Alcohol Intake: never Alcohol Intake Frequency:: other Substance Use Type: denies use *Occupational Status:: retired Housing: snf *Travel in the last 8 weeks: None Family Hx:: Unable to obtain Review of Systems - Review of Systems Review of systems:: unable to obtain (due to patient's pleasant confusion) - *Neurologic Denies seizure-like activity, Denies fainting Meds Home Medications Medication Instructions Recorded Confirmed Type Gabapentin [Gabapentin 300mg Cap] 300 mg PO TID 05/26/17 11/19/18 History Levothyroxine Sodium [Synthroid 75 mcg PO DAILY 05/26/17 11/19/18 History 50mcg (0.05mg) tab] Losartan Potassium [Cozaar] 100 mg PO DAILY 05/26/17 11/19/18 History acetaminophen 500 mg tablet 500 mg PO Q6H PRN 09/15/17 11/19/18 History albuterol sulfate HFA 90 1 puff INHALATION Q4-6H PRN 09/15/17 11/19/18 History mcg/actuation aerosol inhaler furosemide 40 mg tablet 40 mg PO TID 09/15/17 11/19/18 History metoprolol tartrate 50 mg tablet 25 mg PO BID tab 09/15/17 11/19/18 History potassium chloride 20 mEq oral 20 meq PO DAILY each 09/15/17 11/19/18 History packet Citalopram Hydrobromide [Celexa 10 mg PO HS 09/06/18 11/19/18 History 10mg Tablet] Ipratropium/Albuterol Sulfate 3 ml IH TID 09/06/18 11/19/18 History [Iprat-Albut 0.5-3(2.5) mg/3 ml] Multivit with Calcium,Iron,Min 1 each PO DAILY 09/06/18 11/19/18 History [Essential Daily] predniSONE [Prednisone 20mg 20 mg PO BID 11/19/18 11/19/18 History Tab] Allergies Allergy/AdvReac Type Severity Reaction Status Date / Time ARTHRITIS DRUGS Allergy Mild Uncoded 02/25/17 15:10 Exam Vital signs and Labs for Last 24 Hours: Temp Pulse Resp BP Pulse Ox 98.8 F 65 20 159/58 H 95 11/19/18 15:00 11/19/18 15:00 11/19/18 15:00 11/19/18 15:00 11/19/18 15:00 Laboratory Results - last 24 hr 11/19/18 11:09: Specimen Source R radial, O2 % 3lpm, ABG pH 7.29 L, ABG pCO2 80.7 H, ABG pO2 100.8 H, ABG HCO3 37.9 H, ABG Total CO2 40.4 H, ABG O2 Saturation 97, ABG Base Excess 11.4 H, Dmitry Test Acceptable 11/19/18 11:45: Lactate 1.1 11/19/18 12:20: WBC 7.7, RBC 3.44 L, Hgb 10.6 L, Hct 33.2 L, MCV 96.5, MCH 30.9, MCHC 32.1, RDW 14.7, Plt Count 208, MPV 7.9, Neut % (Auto) 77.4, Lymph % (Auto) 15.2, [place] % (Auto) 6.3, Eos % (Auto) 0.9, Baso % (Auto) 0.2, Neut # (Auto) 6.0, Lymph # (Auto) 1.2, [place] # (Auto) 0.5, Eos # (Auto) 0.1, Baso # (Auto) 0.0 11/19/18 12:20: B-Natriuretic Peptide 451 H 11/19/18 12:20: Sodium 145, Potassium 4.5, Chloride 104, Carbon Dioxide 35 H, Anion Gap 10.5, BUN 20 H, Creatinine 0.73, Estimated Creat Clear 59, Estimated GFR 77, Est GFR ( Amer) 93, Glucose 160 H, Calcium 8.4 L, Total Bilirubin 0.2, AST 21, ALT 21, Alkaline Phosphatase 61, Troponin I 0.03, Total Protein 6.4, Albumin 3.1 L, Globulin 3.3 H, Albumin/Globulin Ratio 0.9 L 11/19/18 16:00: Urine Color Yellow, Urine Appearance Clear, Urine pH 7.0, Ur Specific [place] 1.010, Urine Protein Negative, Urine Glucose (UA) Negative, Urine Ketones Negative, Urine Blood Negative, Urine Nitrate Negative, Urine Bilirubin Negative, Urine Urobilinogen 0.2, Ur Leukocyte Esterase Negative, Urine RBC 3-5, Urine WBC Occasional, Ur Squamous Epith Cells 5-10, Urine Bacteria None I & O for Last 24 hours: Intake & Output 11/16/18 11/17/18 11/18/18 11/19/18 23:59 23:59 23:59 23:59 Weight 79.124 kg - Constitutional no acute distress, chronically ill appearing Comments: elderly - *Routine HEENT Exam Head: Present: normocephalic Eye: Present: EOMI, PERRL ENT: Present: mucous membranes moist - *Routine Neck Exam Present: supple. Absent: lymphadenopathy - *Routine Respiratory Exam Present: CTA bilaterally, wheezes, crackles - *Routine Cardiovascular Exam Present: RRR - *Routine Abdominal Exam Present: soft, normoactive bowel sounds. Absent: tenderness - *Routine Extremities Exam Present: edema (1+). Absent: cyanosis, clubbing - *Routine Skin Exam Present: warm. Absent: rash - *Routine Neurological Exam Present: alert, altered mental status. Absent: oriented X3 (pleasantly confused. REsponds to voice with unintelligible responses.) Assessment and Plan (1) Acute exacerbation of chronic obstructive airways disease Current visit: Yes Status: Acute Category: Medical Code(s): J44.1 - Chronic obstructive pulmonary disease with (acute) exacerbation (2) Hypercapnic respiratory failure Current visit: Yes Status: Acute Category: Medical Code(s): J96.92 - Respiratory failure, unspecified with hypercapnia (3) CHF exacerbation Current visit: Yes Status: Acute Qualifiers: Heart failure type: unspecified Qualified Code(s): I50.9 - Heart failure, unspecified Category: Medical Code(s): I50.9 - Heart failure, unspecified Diuresis as ordered. Monitor I&O. (4) Hypothyroidism Current visit: Yes Status: Chronic Qualifiers: Hypothyroidism type: acquired Qualified Code(s): E03.9 - Hypothyroidism, unspecified Category: Medical Code(s): E03.9 - Hypothyroidism, unspecified continue Home Meds. - Assessment and plan all Dx Assessment and Plan for all problems:: 78 yo F with Acute on Chronic Hypercapneic respiratory failure. Admitted for further management. Initiated on BiPAP. Speech eval in the morning. NPO for now. RE-evaluate in AM.
--- NOTE | 2018-11-19 21:07 | Electrocardiograph Report ---
APPROVED REPORT Exam: Resting ECG HR:65 bpm ECG Measurements Heart Rate 65 AXES NC 134 P 62 QRSd 92 QRS 57 QT 388 T-6 QTc 403 <Conclusion> Normal sinus rhythm Nonspecific ST and T wave abnormality Abnormal ECG Electronically signed by : Yassine Monique, 11/19/2018 21:07:12
[2018-11-19 22:40] LABS: ABG Base Excess 13.6 mmol/L (-2.4-2.3); ABG HCO3 39.2 mmhg (22.0-26.0); ABG Oxygen Saturation 97 % (90-100); ABG PH 7.35 mmol/L (7.35-7.45); ABG TCO2 41.4 mmhg (23-27)
[2018-11-19 22:42] LABS: Oxygen 40% %
[2018-11-19 22:43] LABS: Allen's Test Acceptable; PEEP 6
[2018-11-19 22:44] LABS: ABG PCO2 72.1 mmhg (35.0-45.0)
[2018-11-20 07:19] LABS: Basophils % 0.1 % (0.1-2.0); Eosinophils % 0.3 % (0.1-12.0); Hematocrit 36.4 % (37.0-47.0); Hemoglobin 11.3 g/dL (12.2-16.2); Lymphocytes # 0.7 K/mm3 (0.7-4.5); Lymphocytes % 10.7 % (10-50); Mean Corpuscular Volume 96.8 fl (81-99); Mean Platelet Volume 8.5 fl (7.4-10.4); Monocytes # 0.2 K/mm3 (0.1-1.0); Monocytes % 2.5 % (1.7-9.3); Neutrophils # 5.6 K/mm3 (1.8-7.8); Neutrophils % 86.5 % (37.0-80.0); Platelet Count 227 K/mm3 (142-424); Red Blood Count 3.76 M/mm3 (4.20-5.40); Red Cell Distribution Width 14.4 % (11.5-17.5); White Blood Count 6.4 K/mm3 (4.8-10.8)
[2018-11-20 07:21] LABS: Anion Gap 8.1 mEq/L (5-15); Calcium 8.7 mg/dL (8.5-10.1)
--- NOTE | 2018-11-20 07:33 | Pharmacy Consult Notes ---
[facility] Pharmacy VTE Monitoring - Patient Demographics Admission date: 11/19/18 Report Date: 11/20/18 Time: 07:33 Allergies/Adverse Reactions: Patient Allergies ARTHRITIS DRUGS Allergy (Mild, Uncoded 02/25/17 15:10) Height: 1.65 m Weight: 79.634 kg Patient Problems: Current Active Problems Hypercapnic respiratory failure (Acute) Acute exacerbation of chronic obstructive airways disease (Acute) Aspiration pneumonia (Acute) CHF exacerbation (Acute) Hypothyroidism (Chronic) - VTE Risk Labs: VTE Related Lab Results Hgb 11.3 g/dL (12.2-16.2) L 11/20/18 06:44 Hct 36.4 % (37.0-47.0) L 11/20/18 06:44 Plt Count 227 K/mm3 (142-424) 11/20/18 06:44 BUN 20 mg/dL (7-18) H 11/19/18 12:20 Creatinine 0.73 mg/dL (0.55-1.02) 11/19/18 12:20 Estimated Creat Clear 59 mL/min (50-200) 11/19/18 12:20 VTE Score: 3 VTE Risk Level: Low Risk - Prophylaxis VTE Prophylaxis Ordered?: Yes Types of VTE Prophylaxis: TEDS Knee High Location of Applied Device: Bilateral Lower Extremeties - VTE Diagnosis Confirmed Treatment or plan recommended: Continue Current Treatment
--- NOTE | 2018-11-20 08:05 | Progress Note ---
Internal Medicine - PN: Subj *Date: 11/20/18 *Time: 08:04 Interval history: Overnight patient remains pleasant, but confused, unable to give a history. Was able to tolerate nasal cannula instead of BiPAP through most of the evening. Exam Vital signs and Labs for Last 24 Hours: Temp Pulse Resp BP Pulse Ox 98.7 F 66 24 151/71 H 97 11/20/18 04:00 11/20/18 06:05 11/20/18 04:00 11/20/18 04:00 11/20/18 06:25 Laboratory Results - last 24 hr 11/19/18 11:09: Specimen Source R radial, O2 % 3lpm, ABG pH 7.29 L, ABG pCO2 80.7 H, ABG pO2 100.8 H, ABG HCO3 37.9 H, ABG Total CO2 40.4 H, ABG O2 Saturation 97, ABG Base Excess 11.4 H, Dmitry Test Acceptable 11/19/18 11:45: Lactate 1.1 11/19/18 12:20: WBC 7.7, RBC 3.44 L, Hgb 10.6 L, Hct 33.2 L, MCV 96.5, MCH 30.9, MCHC 32.1, RDW 14.7, Plt Count 208, MPV 7.9, Neut % (Auto) 77.4, Lymph % (Auto) 15.2, [place] % (Auto) 6.3, Eos % (Auto) 0.9, Baso % (Auto) 0.2, Neut # (Auto) 6.0, Lymph # (Auto) 1.2, [place] # (Auto) 0.5, Eos # (Auto) 0.1, Baso # (Auto) 0.0 11/19/18 12:20: B-Natriuretic Peptide 451 H 11/19/18 12:20: Sodium 145, Potassium 4.5, Chloride 104, Carbon Dioxide 35 H, Anion Gap 10.5, BUN 20 H, Creatinine 0.73, Estimated Creat Clear 59, Estimated GFR 77, Est GFR ( Amer) 93, Glucose 160 H, Calcium 8.4 L, Total Bilirubin 0.2, AST 21, ALT 21, Alkaline Phosphatase 61, Troponin I 0.03, Total Protein 6.4, Albumin 3.1 L, Globulin 3.3 H, Albumin/Globulin Ratio 0.9 L 11/19/18 16:00: Urine Color Yellow, Urine Appearance Clear, Urine pH 7.0, Ur Specific [employer] 1.010, Urine Protein Negative, Urine Glucose (UA) Negative, Urine Ketones Negative, Urine Blood Negative, Urine Nitrate Negative, Urine Bilirubin Negative, Urine Urobilinogen 0.2, Ur Leukocyte Esterase Negative, [place] ne RBC 3-5, Urine WBC Occasional, Ur Squamous Epith Cells 5-10, Urine Bacteria None 11/19/18 22:37: Specimen Source Right radial, O2 % 40%, ABG pH 7.35, ABG pCO2 72.1 H, ABG pO2 99.0, ABG HCO3 39.2 H, ABG Total CO2 41.4 H, ABG O2 Saturation 97, ABG Base Excess 13.6 H, Dmitry Test Acceptable, PEEP 6 11/20/18 06:44: WBC 6.4, RBC 3.76 L, Hgb 11.3 L, Hct 36.4 L, MCV 96.8, MCH 30.1, MCHC 31.0 L, RDW 14.4, Plt Count 227, MPV 8.5, Neut % (Auto) 86.5 H, Lymph % (Auto) 10.7, [place] % (Auto) 2.5, Eos % (Auto) 0.3, Baso % (Auto) 0.1, Neut # (Auto) 5.6, Lymph # (Auto) 0.7, [place] # (Auto) 0.2, Eos # (Auto) 0.0, Baso # (Auto) 0.0 11/20/18 06:44: Sodium 145, Potassium 4.1, Chloride 103, Carbon Dioxide 38 H, Anion Gap 8.1, BUN 21 H, Creatinine 0.76, Estimated Creat Clear 56, Estimated GFR 73, Est GFR ( Amer) 89, Glucose 137 H, Calcium 8.7 I & O for Last 24 hours: Intake & Output 11/17/18 11/18/18 11/19/18 11/20/18 11:59 11:59 11:59 11:59 Intake Total 143 / 143 Output Total 600 / 600 Balance -457 / -457 Weight 185 lb 175 lb 9 oz Narrative: Oropharynx clear, anterior lung bird clear. Heart rate regular. Abdomen soft, no distal perfusion deficits, no edema. Neurologic exam nonfocal compromised by her dementia. Assessment and Plan (1) Acute exacerbation of chronic obstructive airways disease Current visit: Yes Status: Acute Category: Medical Code(s): J44.1 - Chronic obstructive pulmonary disease with (acute) exacerbation (2) Hypercapnic respiratory failure Current visit: Yes Status: Acute Category: Medical Code(s): J96.92 - Respiratory failure, unspecified with hypercapnia (3) CHF exacerbation Current visit: Yes Status: Acute Qualifiers: Heart failure type: unspecified Qualified Code(s): I50.9 - Heart failure, unspecified Category: Medical Code(s): I50.9 - Heart failure, unspecified (4) Hypothyroidism Current visit: Yes Status: Chronic Qualifiers: Hypothyroidism type: acquired Qualified Code(s): E03.9 - Hypothyroidism, unspecified Category: Medical Code(s): E03.9 - Hypothyroidism, unspecified - Assessment and plan all Dx Assessment and Plan for all problems:: Overall patient improving. Continue current therapy. Try to contact about end-of-life planning/wishes about ventilation.
[2018-11-20 08:24] LABS: Lymphocytes % 12 % (10-50); Monocytes % 1 % (2-9); Neutrophils % 87 % (42-76); Total Cells Counted 100
[2018-11-20 08:25] LABS: RBC Morphology Normal
--- NOTE | 2018-11-20 12:40 | Consult Report ---
*Admission Date: 11/19/18 *Reason for consult:: possible EGD *History of present illness: This is an 78yo female seen in consultation from the service of Dr. Monique for possible EGD. She was admitted for management of likely aspiration pneumonia and respiratory failure. She has apparently had fairly severe pain with swallowing and has been evaluated by speech therapy. Her swallowing mechanism appears to be intact but concerns of esophageal dysphagia were discussed. Review of Systems - Review of Systems Review of systems:: unable to obtain - *Neurologic Denies seizure-like activity, Denies fainting [facility] History Medical History: Reports:: Chronic Obstructive Pulmonary Disease (COPD) Denies:: Diabetes Mellitus Type 1, Diabetes Mellitus Type 2 *Have you ever received a pneumonia vaccine?: Yes *Have you received a flu vaccine this season?: Yes Other Medical History: Reports: Arthritis Amputation: No - *Social History Smoking Status: Former smoker Tobacco Type: cigarettes Alcohol Intake: never Alcohol Intake Frequency:: other Substance Use Type: denies use *Occupational Status:: retired Housing: snf *Travel in the last 8 weeks: None Family Hx:: Unable to obtain Med Home Medications Medication Instructions Recorded Confirmed Type Gabapentin [Gabapentin 300mg Cap] 300 mg PO TID 05/26/17 11/19/18 History Levothyroxine Sodium [Synthroid 75 mcg PO DAILY 05/26/17 11/19/18 History 50mcg (0.05mg) tab] Losartan Potassium [Cozaar] 100 mg PO DAILY 05/26/17 11/19/18 History acetaminophen 500 mg tablet 1,000 mg PO Q6H PRN 09/15/17 11/20/18 History albuterol sulfate HFA 90 1 puff INHALATION Q4-6H PRN 09/15/17 11/19/18 History mcg/actuation aerosol inhaler furosemide 40 mg tablet 40 mg PO BID 09/15/17 11/20/18 History Citalopram Hydrobromide [Celexa 10 mg PO HS 09/06/18 11/19/18 History 10mg Tablet] Ipratropium/Albuterol Sulfate 3 ml IH TID 09/06/18 11/19/18 History [Iprat-Albut 0.5-3(2.5) mg/3 ml] Multivit with Calcium,Iron,Min 1 each PO DAILY 09/06/18 11/19/18 History [Essential Daily] predniSONE [Prednisone 20mg 20 mg PO DAILY 11/19/18 11/20/18 History Tab] Metoprolol Tartrate [Lopressor 25 mg PO BID 11/20/18 11/20/18 History 25mg tablet] Polyethylene Glycol 3350 [Miralax 17 gm PO DAILYP PRN 11/20/18 11/20/18 History 17gm Packet] Potassium Chloride [Klor-con 20 20 meq PO DAILY 11/20/18 11/20/18 History mEq tablet] Sennosides [Senna] 17.2 mg PO HS 11/20/18 11/20/18 History Allergies Allergy/AdvReac Type Severity Reaction Status Date / Time ARTHRITIS DRUGS Allergy Mild Uncoded 02/25/17 15:10 Exam Vital signs and Labs for Last 24 Hours: Temp Pulse Resp BP Pulse Ox 98.9 F 59 L 16 160/64 H 95 11/20/18 08:00 11/20/18 08:00 11/20/18 08:00 11/20/18 08:00 11/20/18 10:45 Laboratory Results - last 24 hr 11/19/18 12:20: B-Natriuretic Peptide 451 H 11/19/18 12:20: Sodium 145, Potassium 4.5, Chloride 104, Carbon Dioxide 35 H, Anion Gap 10.5, BUN 20 H, Creatinine 0.73, Estimated Creat Clear 59, Estimated GFR 77, Est GFR ( Amer) 93, Glucose 160 H, Calcium 8.4 L, Total Bilirubin 0.2, AST 21, ALT 21, Alkaline Phosphatase 61, Troponin I 0.03, Total Protein 6.4, Albumin 3.1 L, Globulin 3.3 H, Albumin/Globulin Ratio 0.9 L 11/19/18 16:00: Urine Color Yellow, Urine Appearance Clear, Urine pH 7.0, Ur Specific [place] 1.010, Urine Protein Negative, Urine Glucose (UA) Negative, Urine Ketones Negative, Urine Blood Negative, Urine Nitrate Negative, Urine B ilirubin Negative, Urine Urobilinogen 0.2, Ur Leukocyte Esterase Negative, Urine RBC 3-5, Urine WBC Occasional, Ur Squamous Epith Cells 5-10, Urine Bacteria None 11/19/18 22:37: Specimen Source Right radial, O2 % 40%, ABG pH 7.35, ABG pCO2 72.1 H, ABG pO2 99.0, ABG HCO3 39.2 H, ABG Total CO2 41.4 H, ABG O2 Saturation 97, ABG Base Excess 13.6 H, Dmitry Test Acceptable, PEEP 6 11/20/18 06:44: WBC 6.4, RBC 3.76 L, Hgb 11.3 L, Hct 36.4 L, MCV 96.8, MCH 30.1, MCHC 31.0 L, RDW 14.4, Plt Count 227, MPV 8.5, Neut % (Auto) 86.5 H, Lymph % (Auto) 10.7, Pepin % (Auto) 2.5, Eos % (Auto) 0.3, Baso % (Auto) 0.1, Neut # (Auto) 5.6, Lymph # (Auto) 0.7, Pepin # (Auto) 0.2, Eos # (Auto) 0.0, Baso # (Auto) 0.0, Total Counted 100, Neutrophils % (Manual) 87 H, Lymphocytes % (Manual) 12, Monocytes % (Manual) 1 L, Platelet Estimate Normal, RBC Morphology Normal 11/20/18 06:44: Sodium 145, Potassium 4.1, Chloride 103, Carbon Dioxide 38 H, Anion Gap 8.1, BUN 21 H, Creatinine 0.76, Estimated Creat Clear 56, Estimated GFR 73, Est GFR ( Amer) 89, Glucose 137 H, Calcium 8.7 I & O for Last 24 hours: Intake & Output 11/18/18 11/19/18 11/20/18 11/21/18 11:59 11:59 11:59 11:59 Intake Total 143 / 143 Output Total 750 / 750 Balance -607 / -607 Weight 185 lb 175 lb 9.007 oz - Constitutional no acute distress - *Routine Respiratory Exam Absent: respiratory distress Results - Labs 11/20/18 06:44 11/20/18 06:44 Laboratory Results - last 24 hr 11/19/18 12:20: B-Natriuretic Peptide 451 H 11/19/18 12:20: Sodium 145, Potassium 4.5, Chloride 104, Carbon Dioxide 35 H, Anion Gap 10.5, BUN 20 H, Creatinine 0.73, Estimated Creat Clear 59, Estimated GFR 77, Est GFR ( Amer) 93, Glucose 160 H, Calcium 8.4 L, Total Bilirubin 0.2, AST 21, ALT 21, Alkaline Phosphatase 61, Troponin I 0.03, Total Protein 6.4, Albumin 3.1 L, Globulin 3.3 H, Albumin/Globulin Ratio 0.9 L 11/19/18 16:00: Urine Color Yellow, Urine Appearance Clear, Urine pH 7.0, Ur Specific [place] 1.010, Urine Protein Negative, Urine Glucose (UA) Negative, Urine Ketones Negative, Urine Blood Negative, Urine Nitrate Negative, Urine Bilirubin Negative, Urine Urobilinogen 0.2, Ur Leukocyte Esterase Negative, Urine RBC 3-5, Urine WBC Occasional, Ur Squamous Epith Cells 5-10, Urine Bacteria None 11/19/18 22:37: Specimen Source Right radial, O2 % 40%, ABG pH 7.35, ABG pCO2 72.1 H, ABG pO2 99.0, ABG HCO3 39.2 H, ABG Total CO2 41.4 H, ABG O2 Saturation 9 7, ABG Base Excess 13.6 H, Dmitry Test Acceptable, PEEP 6 11/20/18 06:44: WBC 6.4, RBC 3.76 L, Hgb 11.3 L, Hct 36.4 L, MCV 96.8, MCH 30.1, MCHC 31.0 L, RDW 14.4, Plt Count 227, MPV 8.5, Neut % (Auto) 86.5 H, Lymph % (Auto) 10.7, Pepin % (Auto) 2.5, Eos % (Auto) 0.3, Baso % (Auto) 0.1, Neut # (Auto) 5.6, Lymph # (Auto) 0.7, Pepin # (Auto) 0.2, Eos # (Auto) 0.0, Baso # (Auto) 0.0, Total Counted 100, Neutrophils % (Manual) 87 H, Lymphocytes % (Manual) 12, Monocytes % (Manual) 1 L, Platelet Estimate Normal, RBC Morphology Normal 11/20/18 06:44: Sodium 145, Potassium 4.1, Chloride 103, Carbon Dioxide 38 H, Anion Gap 8.1, BUN 21 H, Creatinine 0.76, Estimated Creat Clear 56, Estimated GFR 73, Est GFR ( Amer) 89, Glucose 137 H, Calcium 8.7 Assessment and Plan (1) Acute exacerbation of chronic obstructive airways disease Current visit: Yes Status: Acute Category: Medical Code(s): J44.1 - Chronic obstructive pulmonary disease with (acute) exacerbation (2) Hypercapnic respiratory failure Current visit: Yes Status: Acute Category: Medical Code(s): J96.92 - Respiratory failure, unspecified with hypercapnia (3) CHF exacerbation Current visit: Yes Status: Acute Qualifiers: Heart failure type: unspecified Qualified Code(s): I50.9 - Heart failure, unspecified Category: Medical Code(s): I50.9 - Heart failure, unspecified (4) Hypothyroidism Current visit: Yes Status: Chronic Qualifiers: Hypothyroidism type: acquired Qualified Code(s): E03.9 - Hypothyroidism, unspecified Category: Medical Code(s): E03.9 - Hypothyroidism, unspecified (5) Dysphagia Current visit: Yes Status: Acute Category: Medical Code(s): R13.10 - D ysphagia, unspecified Multiple comorbid conditions would significantly increase the risk of sedation. In addition, we have not been able to obtain consent for invasive procedures. Unless the patient will be placed on comfort care measures only, I recommend barium swallow and potential formal modified barium swallow. Pending results of barium swallow and pending potential consent consideration of esophagogastroduodenoscopy will be ongoing.
--- NOTE | 2018-11-21 07:40 | Discharge Summary ---
General - General Admission date:: 11/19/18 Discharge date: 11/21/18 HPI HPI: Ms. Crespo is an 78-year-old female with multiple comorbidities who presented from a assisted to the ER due to worsening confusion and altered mental status. She was started earlier this week on Friday on antibiotics and steroids for concern for respiratory infection. At time of assessment in the ER she was found to have hypercarbia and respiratory failure. Additionally has a degree of CHF with elevated BNP. Patient unable to give review of systems or significant history due to confusion. She is pleasant however and smiles on interview but is unable to provide much information. Admitted to medicine for further management. Hospital Course Hospital Course: Patient was admitted. CT scanning of the chest showed no evidence of pulmonary infiltrates, but did have evidence of esophageal food bolus with possible obstruction issues. Patient was placed on BiPAP for the first 12 hours of her stay which improved her hypercapnia and improved her mental status changes. Over the next day we tried to make contact with her , who after being contacted by nursing staff maintain that patient should be on a DNR status, but then stated that he "did not want to be contacted with anything else and wanted to be left alone." Of note, the assisted is experience this behavior from the before, and apparently has an open APS investigation. In this vein, we proceeded with nonaggressive care with the patient's best interest at heart-which consisted of a barium swallow that showed a possible esophageal web. Patient did well with thin liquids, and tolerated this over the next day or so. This morning the patient is back to baseline, tolerating 2 L nasal cannula well and has no complaints. Plan will be to transfer back to the [facility] today with a thickened liquid diet only, no solid foods, we will ask the assisted to schedule a modified barium swallow early next week at [facility]. If this shows again evidence of esophageal obstruction we may consider palliative/therapeutic EGD to evaluate for dilatation of the esophageal web versus food bolus disimpaction. Regardless, the patient's DNR status is appropriate-I am concerned about the 's motivation for this however. Objective Vital signs: Temp Pulse Resp BP Pulse Ox 98.3 F 72 18 143/64 H 98 11/21/18 04:00 11/21/18 06:40 11/21/18 04:00 11/21/18 04:00 11/21/18 06:40 Narrative: Patient pleasant, smiles, takes a deep breath and responds to commands but otherwise is considerably demented and noncommunicative. Oropharynx is moist and clear, no JVD. Heart rate regular, anterior lung bird are clear, abdomen soft. Perfusion is good in all 4 extremities. Kapadia catheter draining clear yellow urine. No skin lesions. Results Labs on day of discharge: Labs from last 24 hours 11/20/18 11/20/18 06:44 06:44 Total Counted 100 Neutrophils % (Manual) 87 H Lymphocytes % (Manual) 12 Monocytes % (Manual) 1 L Platelet Estimate Normal RBC Morphology Normal Sodium 145 Potassium 4.1 Chloride 103 Carbon Dioxide 38 H Anion Gap 8.1 BUN 21 H Creatinine 0.76 Estimated Creat Clear 56 Estimated GFR 73 Est GFR ( Amer) 89 Glucose 137 H Calcium 8.7 DS: Diagnosis - Discharge Diagnosis (1) Acute exacerbation of chronic obstructive airways disease Status: Resolved (2) Hypercapnic respiratory failure Status: Resolved (3) CHF exacerbation Status: Resolved (4) Hypothyroidism Status: Chronic (5) Dysphagia Status: Chronic Discharge Plan - Patient Discharge Instructions ACTIVITY: Continue current activity DIET: continue same diet, other (Thickened liquids only) - Follow up Plan Follow up with: Eileen Garrison APRN [Nurse Practitioner] - Disposition: er [facility] Home Medications: Home Medications Medication Instructions Recorded Confirmed Type Gabapentin [Gabapentin 300mg Cap] 300 mg PO TID 05/26/17 11/19/18 History Levothyroxine Sodium [Synthroid 75 mcg PO DAILY 05/26/17 11/19/18 History 50mcg (0.05mg) tab] Losartan Potassium [Cozaar] 100 mg PO DAILY 05/26/17 11/19/18 History acetaminophen 500 mg tablet 1,000 mg PO Q6H PRN 09/15/17 11/20/18 History albuterol sulfate HFA 90 1 puff INHALATION Q4-6H PRN 09/15/17 11/19/18 History mcg/actuation aerosol inhaler furosemide 40 mg tablet 40 mg PO BID 09/15/17 11/20/18 History Citalopram Hydrobromide [Celexa 10 mg PO HS 09/06/18 11/19/18 History 10mg Tablet] Ipratropium/Albuterol Sulfate 3 ml IH TID 09/06/18 11/19/18 History [Iprat-Albut 0.5-3(2.5) mg/3 ml] Multivit with Calcium,Iron,Min 1 each PO DAILY 09/06/18 11/19/18 History [Essential Daily] predniSONE [Prednisone 20mg 20 mg PO DAILY 11/19/18 11/20/18 History Tab] Metoprolol Tartrate [Lopressor 25 mg PO BID 11/20/18 11/20/18 History 25mg tablet] Polyethylene Glycol 3350 [Miralax 17 gm PO DAILYP PRN 11/20/18 11/20/18 History 17gm Packet] Potassium Chloride [Klor-con 20 20 meq PO DAILY 11/20/18 11/20/18 History mEq tablet] Sennosides [Senna] 17.2 mg PO HS 11/20/18 11/20/18 History Prescriptions/Medication Reconciliation: Continued furosemide 40 mg tablet 40 mg PO BID acetaminophen 500 mg tablet 1,000 mg PO Q6H PRN PRN Reason: pain albuterol sulfate HFA 90 mcg/actuation aerosol inhaler 1 puff INHALATION Q4- 6H PRN PRN Reason: soa Levothyroxine Sodium [Synthroid 50mcg (0.05mg) tab] 75 mcg PO DAILY Losartan Potassium [Cozaar] 100 mg PO DAILY Gabapentin [Gabapentin 300mg Cap] 300 mg PO TID Ipratropium/Albuterol Sulfate [Iprat-Albut 0.5-3(2.5) mg/3 ml] 3 ml IH TID Metoprolol Tartrate [Lopressor 25mg tablet] 25 mg PO BID Sennosides [Senna] 17.2 mg PO HS Multivit with Calcium,Iron,Min [Essential Daily] 1 each PO DAILY Discontinued Citalopram Hydrobromide [Celexa 10mg Tablet] 10 mg PO HS predniSONE [Prednisone 20mg Tab] 20 mg PO DAILY Polyethylene Glycol 3350 [Miralax 17gm Packet] 17 gm PO DAILYP PRN PRN Reason: Constipation Potassium Chloride [Klor-con 20 mEq tablet] 20 meq PO DAILY - Problem Reconciliation Problems Reviewed?: Yes
== END 2018-11-21 09:15 | DRG 189 ==
LOC: ER 10:03 → 2ND 13:25
PROVIDERS: ADMIT Internal Medicine Adolescent Medicine; ATTEND Internal Medicine Adolescent Medicine

== ENCOUNTER → 2018-12-07 12:19 | Outpatient (CLI) | payer MEDICARE, OTHER, SELFPAY ==
--- NOTE | 2018-12-07 12:23 | FL_ITS ---
PROCEDURE: FL BARIUM SWALLOW MODIFIED CLINICAL INDICATION: DIFFICULTY SWALLOWING COMPARISON: No exams were available for comparison FINDINGS: The lateral cine images show patient drinking some liquid without evidence of aspiration. There is no definite residual in the vallecular. Motion of the oropharynx and hypopharyngeal area appear to be normal. Fluoroscopy time is 3 minutes and 24 seconds. IMPRESSION: No definite aspiration on the available cine images. Dictated by: Italo Davidson 12/07/2018 14:35 Electronically signed by Italo Davidson in [place] 12/07/2018 14:35
--- NOTE | 2018-12-07 13:40 | XR_ITS ---
PROCEDURE: XR CHEST 2V CLINICAL HISTORY: ASPIRATION, S/P MOD BARIUM SWALLOW COMPARISON: CXR1VP XR chest portable from 05/26/2017 FINDINGS: The cardiomediastinal silhouette and pulmonary vascularity are within normal limits. Lungs remain clear and there are stable mild blunting of the right lateral costophrenic angle. There is a stable benign left apical calcified granuloma. There is no pneumothorax. There is some residual contrast in visualized portions of the stomach and upper small bowel loops. No acute bony abnormalities. IMPRESSION: No acute process. Right lateral mild pleural thickening. Some residual density perhaps contrast or medication in the stomach and several loops of some proximal small bowel. Dictated by: Italo Davidson 12/07/2018 14:59 Electronically signed by Italo Davidson in [place] 12/07/2018 14:59
--- NOTE | 2018-12-07 14:06 | HMH.SLMBS2 ---
Speech & Language Evaluation Speech/Language Mod Barium Swallow Start: 12/07/18 13:43 Freq: once Status: Complete Protocol: Document 12/07/18 13:43 KENNEDY (Rec: 12/07/18 14:06 KENNEDY [id number][place] [facility] [place] Diet Dietary Recommendations NPO Referrals/Other Recommended Referrals Alternate Feeding Method Mod Barium Swallow Impressions Summary and Impressions Oral Phase Impression Severe Impairment Oral Phase Summary Abnormally fast transit of bolus over the back of tongue Decreased bolus formation Pharyngeal Phase Impression Severe Impairment Pharyngeal Phase Summary Delay to absent swallow reflex Absent epiglottic closure Significant pooling in the airway Epiglottis did closure due to weight of bolus in valleculae. Penetration into laryngeal vestibule with thins and mechanical soft possibly with other consistencies, however could not be determined due to patient's constant movement. Signs and symptoms exacerbated with fatigue Speech/Language MBS Assessment/Goals/Plan Assessment Date of Evaluation: 12/07/18 Evaluation Type Initial Certification Assessment/Problems Dysphagia Does Patient Qualify for Service No Qualify/Failure Comment Patient could not follow directions to participate in therapy. Recommendations PHYSICIAN CERTIFICATION: The specified therapy services are required, authorized, and reviewed every 30 days. Diet Recommendations NPO Plan Pt/Guardian verbally ack understanding No: unable to verbalize of dx/prognosis/goals G -code Required Yes G-CODES ST Current Status [id number] ST Current Status Modifier CN-At least 100% impaired, limited or restricted ST Goal Status [id number] ST Goal Status Modifier CN-At least 100% impaired, limited or restricted Mod Barium Swallow Setup Exam Setup Radiologist Italo Davidson Level of Consciousness Awake Position (degrees) 90 Mod Barium Swallow-Lat View Textures Lateral View Food Presentation Thin Liquid via Cup,Thin Liquid via Straw,Pureed Food- Thick,Ground Food- Regular, Barium Tablet,Pudding Mod Barium Swallow-AP
== END ==
PROVIDERS: PCP Internal Medicine Adolescent Medicine; Visit Provider Internal Medicine Adolescent Medicine
DX: R13.10 Dysphagia, unspecified (principal)
CPT/HCPCS: 70371; 71046; 92611

== ENCOUNTER → 2019-05-11 20:56 | Outpatient (CLI) | payer MEDICARE, OTHER, SELFPAY | LOC: LAB 20:58 → LAB.DROPOF 05-12 07:36 | PROVIDERS: Visit Provider Internal Medicine Adolescent Medicine | DX: R68.89 Other general symptoms and signs (principal) | CPT/HCPCS: 87275; 87276 ==

== ENCOUNTER 2019-06-27 18:46 | Emergency (ER) | payer MEDICARE, OTHER, SELFPAY ==
[2019-06-27 18:46] VITALS: BP 158/85; PULSE 69; RESP 20; TEMP 36.8; O2SAT 96; BMI 29.0
--- NOTE | 2019-06-27 18:57 | XR_ITS ---
PROCEDURE: XR PELVIS 1-2V Patient Age:78Y CLINICAL INDICATION: FALL Flat on to face out of chair. Laceration forehead. Several injuries COMPARISON: XR PELVIS 1-2V from 03/15/2019 TECHNIQUE: XR Pelvis AP View FINDINGS: AP pelvis radiograph single view. Comparison is made 03/15/2019. Diffuse demineralization. No acute findings at the pelvis. Osseous pelvis intact. AP view of hips shows slight narrowing at superior joint spaces bilaterally, reflecting developing degenerative changes both hips. No fracture or dislocation is evident. . degenerative changes SI joints most evident inferior left SI joint-stable. Pubis, iliac bone stable. Degenerative changes lower lumbar spine noted IMPRESSION: Osseous pelvis stable. Intact but No acute findings. . Developing degenerative changes hips, and SI joints, and lower L-spine Dictated by: Florin Ortega MD 06/27/2019 22:59 Electronically signed by Florin Ortega MD in [place] 06/27/2019 22:59
--- NOTE | 2019-06-27 18:57 | CT_ITS ---
PROCEDURE: CT FACIAL BONES WO CON Patient Age:78Y CLINICAL HISTORY: FALL Patient fell face 1st laceration center forehead. Patient unable to give history. COMPARISON: HEADWO CT head/brain wo con from 05/26/2017 CT HEAD/BRAIN WO CON from 03/15/2019 CT CERVICAL SPINE WO CON from 03/15/2019 TECHNIQUE: No IV contrast Helical axial images obtained with sagittal and coronal reformats. All CT scans at the facility use one or more dose reduction, viz: automated exposure control, ma/kV adjustment per patient size (including targeted exams where dose is matched to indication, i.e. head), or iterative reconstruction technique. FINDINGS: Facial bones: .. No fracture. No lesion.. Extracranial soft ti tissue: Deep laceration forehead most evident at midline and likely extends slightly to the right. Diffuse soft tissue swelling forehead from the trauma as well. Either faint stippled debris throughout the forehead versus faint dermal/sebaceous calcifications Sinuses: . Small retention cyst 7.5 mm posterior aspect left maxillary sinus. Otherwise paranasal sinuses clear unremarkable. The no sinus air-fluid levels. No fractures but ostiomeatal complex but patent Orbits: Floor and medial wall of orbit intact. Globes intact. Mild engorged of nasal turbinates bilaterally. Most evident on left. Right and left TMJ intact. Old abnormality at left upper 1st premolar tooth-tooth 12.. I suspect her is an old injury, trauma here with possible old fracture at extending to the root of this tooth. However note similar appearance was noted on March 2011 study and is unchanged. Clinical inspection of this area required. Multiple areas of dental caries or diminished size fractured teeth, noted elsewhere. Thus follow-up dental evaluation for these features recommended. IMPRESSION: 1.No acute facial bone findings. . 2.Laceration forehead extending up towards scalp with soft tissue swelling throughout forehead 3. Dental abnormalities warrant follow-up dental consult. . Abnormal left upper premolar-possible old fractured tooth. Unchanged since March 2019. . Other areas of dental caries or fractured teeth Dictated by: Florin Ortega MD 06/27/2019 22:41 Electronically signed by Florin Ortega MD in [place] 06/27/2019 22:41
--- NOTE | 2019-06-27 18:57 | XR_ITS ---
PROCEDURE: XR CHEST PORTABLE Patient Age:78Y CLINICAL HISTORY: FALL Fell face down. Fell out of chair laceration forehead COMPARISON: CXR1VP XR chest portable from 05/26/2017 CT CHEST WO CON from 11/19/2018 XR CHEST 2V from 12/07/2018 XR CHEST AP from 03/15/2019 FINDINGS: Portable AP CXR supine CXR. Comparison to March 2019 No acute findings but the lungs well expanded clear and appear stable. There is elevation of right hemidiaphragm with blunting right CP angle-unchanged since March, and May 2017 study.. This reflects some chronic pleural thickening and changes right CP angle. Left lung clear unremarkable. Slight rotation on this chest film. The heart, luis alfredo and mediastinal structures appear stable. Mildly tortuous aorta. Elevation right hemidiaphragm similar to previous studies.. Otherwise appears to be some mild underlying hyperexpansion and developing emphysematous changes likely.. Cardiomediastinal silhouette and pulmonary vascularity are within normal limits. The lungs are clear without infiltrates, suspicious nodules, or pleural effusions. No acute bony abnormalities. IMPRESSION: . Lungs clear with nothing definitely acute Elevation right hemidiaphragm and blunting right CP angle similar to previous studies.. No significant new findings Dictated by: Florin Ortega MD 06/27/2019 22:45 Electronically signed by Florin Ortega MD in [place] 06/27/2019 22:45
--- NOTE | 2019-06-27 18:57 | CT_ITS ---
PROCEDURE: CT CERVICAL SPINE WO CON Patient Age:78Y CLINICAL INDICATION: FALL Fell face 1st lacerations center forehead. Head neck and face pain COMPARISON: CT CHEST WO CON from 11/19/2018 CT CERVICAL SPINE WO CON from 03/15/2019 TECHNIQUE: No IV contrast Helical axial images obtained with sagittal and coronal reformats. All CT scans at the facility use one or more dose reduction, viz: automated exposure control, ma/kV adjustment per patient size (including targeted exams where dose is matched to indication, i.e. head), or iterative reconstruction technique. FINDINGS: Today's study shows no significant new findings versus March 2019 CT C-spine No acute fracture or subluxation. The subtle wedging at superior C7 unchanged since March reflects old changes. Degenerative changes C-spine, with disc space narrowing and cervical spondylosis most evident C5/6.. Mild posterior hypertrophic ridging at this level with probable mild central disc protrusion. Trace disc space narrowing posteriorly C6/7 C7/T1. Moderate facet hypertrophy, arthropathy throughout C-spine bilaterally Again noted. Satisfactory alignment C-spine.. Normal prevertebral soft tissues. Facets, neural foramen and vertebral bodieswith normal relationships. Satisfactory stable C1/C2 relationships with developing degenerative changes here.. Diffuse mild demineralization. Calcified carotid bifurcation bilaterally. Apices of lungs are clear with no acute findings. IMPRESSION: Cervical spine intact with no acute fracture nor subluxation. stable appearance C-spine, no significant change since March 2019 Degenerative changes C-spine again noted.. Dictated by: Florin Ortega MD 06/29/2019 10:08 Electronically signed by Florin Ortega MD in [place] 06/29/2019 10:08
--- NOTE | 2019-06-27 18:57 | CT_ITS ---
PROCEDURE: CT HEAD/BRAIN WO CON Patient Age:78Y CLINICAL INDICATION: FALL patient fell face 1st. Laceration center forehead COMPARISON: CT HEAD/BRAIN WO CON from 03/15/2019 TECHNIQUE: Standard axial images were obtained. No IV contrast utilized all CT scans at the facility use one or more dose reduction, viz: automated exposure control, ma/kV adjustment per patient size (including targeted exams where dose is matched to indication, i.e. head), or iterative reconstruction technique. FINDINGS: No acute intracranial findings.. No significant change since March 2019 CT brain No intracranial hemorrhage. No hydrocephalus.The ventricles and basal cisterns appear clear and satisfactory. No mass or midline shift nor mass effect. Diffuse cerebral atrophy.. Minimal chronic small vessel deep white-matter ischemic gliotic changes likely evident . no subdural or extra-axial fluid collection is evident. Posterior fossa unremarkable. Laceration central portion of forehead which appears to extend to the right. Soft tissue swelling throughout forehead associated. Underlying skull intact no skull fracture but diffuse generous thickness calvarium Minimal mastoid effusion and density at the posterior mastoid tip air low T air cells on left. Middle ear clear. IAC's symmetric. Moderate cerumen at the right i EAC Nosinus air-fluid level. Visualized portions of the paranasal sinuses and orbits unremarkable. IMPRESSION: No acute intracranial findings . Diffuse cerebral atrophy . Stable CT brain since March 2019 CT head Laceration forehead. Associated soft tissue swelling forehead Dictated by: Florin Ortega MD 06/27/2019 22:06 Electronically signed by Florin Ortega MD in [place] 06/27/2019 22:06
--- NOTE | 2019-06-27 19:20 | HMH.EDFALL ---
ED Disposition Clinical Impression: Frequent falls, Fall, Head contusion, Laceration Disposition: Home, Self-Care Condition on Discharge: Good Instructions: How to Prevent Falls Additional Instructions: Please return to [facility]. Referrals: Provider,Referral, [Referring] - - Critical Care Critical Care Time: No Attestation: On 06/27/19, the high probability of a clinically significant, sudden or life threatening deterioration of the following system(s) required my full and direct attention, intervention and personal management. The time I documented below is in addition to time spent performing reported procedures but includes the following listed in this critical care notation. Medical Decision Making - Medical Records Medical records reviewed: Yes: I reviewed the patient's medical records. - Shan Inquiry Pt receiving controlled substance: No Vital Signs: 06/27/19 18:46 Temperature 98.2 F Temperature Source Oral Pulse Rate [Right] 69 Respiratory Rate 20 Blood Pressure [Right Arm] 158/85 H Blood Pressure Mean [Right Arm] 109 02 Sat by Pulse Oximetry 96 - Lab Data Lab results reviewed: Yes: I reviewed the patient's lab results. Orders (Tests/Meds): ORDERS Category Date Time Status CT cervical spine wo con Stat Cat Scan 06/27/19 18:[address] facial bones wo con Stat Cat Scan 06/27/19 18:[address] head/brain wo con Stat Cat Scan 06/27/19 18:57 Ordered XR chest portable Stat Exams 06/27/19 18:57 Taken XR pelvis 1-2V Stat Exams 06/27/19 18:57 Taken Fall HPI - General Chief Complaint: Fall Stated Complaint: FALL Time Seen by Provider: 06/27/19 19:00 Mode of Arrival: EMS Source of Information: Patient, EMS, Medical Record Limitations: No Limitations Description of Symptoms (Recalled from ER Triage Doc. by RN): PT FELL OUT OF HER WHEEL CHAIR TRYING TO GET UP RESULTING IN 3 LAC TO HER FOREHEAD. - History of Present Illness HPI Narrative: We have a pleasant 78-year-old female that presents to the ED after a fall at [facility]. Apparently patient was relaxing in her wheelchair and all of a sudden she fell out of her wheelchair and face planted on the floor. She presents with a 4.6 cm laceration over her right brow line. Otherwise there is no other acute trauma. EMS and [facility] denies any other symptoms on this patient. - Related Data Home Medications Medication Instructions Recorded Confirmed Gabapentin [Gabapentin 300mg Cap] 300 mg PO TID 05/26/17 11/19/18 Levothyroxine Sodium [Synthroid 75 mcg PO DAILY 05/26/17 11/19/18 50mcg (0.05mg) tab] Losartan Potassium [Cozaar 100mg 100 mg PO DAILY 05/26/17 11/19/18 Tablets] acetaminophen 500 mg tablet 1,000 mg PO Q6H PRN 09/15/17 11/20/18 albuterol sulfate 90 mcg/actuation 1 puff INHALATION Q4-6H PRN 09/15/17 11/19/18 aerosol inhaler furosemide 40 mg tablet 40 mg PO BID 09/15/17 11/20/18 Ipratropium/Albuterol Sulfate 3 ml IH TID 09/06/18 11/19/18 [Iprat-Albut 0.5-3(2.5) mg/3 ml] Multivit with Calcium,Iron,Min 1 each PO DAILY 09/06/18 11/19/18 [Essential Daily] Metoprolol Tartrate [Lopressor 25 mg PO BID 11/20/18 11/20/18 25mg tablet] Sennosides [Senna] 17.2 mg PO HS 11/20/18 11/20/18 Allergies Allergy/AdvReac Type Severity Reaction Status Date / Time ARTHRITIS DRUGS Allergy Mild Uncoded 02/25/17 15:10 [facility] History - Hepatitis A Screen Drug use history?: No High risk sexual behaviors?: No History of sexually transmitted infection?: No Currently employed?: No Childcare worker?: No Do you have indoor plumbing?: Yes Do you have electricity?: Yes Attestation statement:: This patient has been screened for Hepatitis A risk factors. I have reviewed the patient's past medical history: Yes Medical History: Reports:: Chronic Obstructive Pulmonary Disease (COPD) Denies:: Diabetes Mellitus Type 1, Diabetes Mellitus Type 2 Other Medical History: Reports: Arthritis
--- NOTE | 2019-06-27 19:36 | PC.NURSE ---
returned from ct.
--- NOTE | 2019-06-27 20:13 | PC.NURSE ---
Called [facility] and spoke with the pt's nurse Izabella and updated her on pt's condition and return to facility
[2019-06-27 20:14] VITALS: BP 152/84; PULSE 72; RESP 16; TEMP 36.8; O2SAT 96
== END 2019-06-27 20:26 ==
PROVIDERS: Emergency Provider Family Medicine; PCP Internal Medicine Adolescent Medicine
DX: S01.81XA Laceration without foreign body of other part of head, initial encounter (principal); W05.0XXA Fall from non-moving wheelchair, initial encounter; Y92.129 Unspecified place in nursing home as the place of occurrence of the external cause
CPT/HCPCS: 12013; 70450; 70486; 71045; 72125; 72170; 99283

== ENCOUNTER 2020-09-23 09:11 | Emergency (ER) | payer MEDICARE, OTHER, SELFPAY ==
[2020-09-23 09:12] VITALS: BP 94/38; PULSE 59; RESP 18; TEMP 36.5; O2SAT 94; BMI 27.4
--- NOTE | 2020-09-23 09:14 | CT_ITS ---
PROCEDURE INFORMATION: Exam: CT Head Without Contrast Exam date and time: 09/23/2020 9:14 AM Age: 80 years old Clinical indication: Injury or trauma; Fall; Blunt trauma (contusions or hematomas); Additional info: Closed head injury TECHNIQUE: Imaging protocol: Computed tomography of the head without contrast. 3D rendering (Not supervised by radiologist): MIP and/or 3D reconstructed images were created by the technologist. Radiation optimization: All CT scans at this facility use at least one of these dose optimization techniques: automated exposure control; mA and/or kV adjustment per patient size (includes targeted exams where dose is matched to clinical indication); or iterative reconstruction. COMPARISON: CT HEAD/BRAIN WO CON 06/27/2019 7:20 PM FINDINGS: Brain: The brain demonstrates diffuse volume loss. There is white matter hypodensity most consistent with chronic small vessel ischemic change. No visible evolving territorial infarct. No hemorrhage. Cerebral ventricles: The ventricles are mildly enlarged in keeping with volume loss. Paranasal sinuses: Retention cyst or polyp in the left maxillary sinus. No fluid levels. Mastoid air cells: Visualized mastoid air cells are well aerated. There is material in the right external auditory canal which presumably represents cerumen. Bones/joints: Unremarkable. No acute fracture. Soft tissues: Right frontal scalp soft tissue swelling with cutaneous laceration. IMPRESSION: No acute intracranial abnormality seen.
--- NOTE | 2020-09-23 09:33 | HMH.EDFALL ---
ED Disposition Clinical Impression: Frequent falls Closed head injury Qualifiers: Encounter type: initial encounter Qualified Code(s): S09.90XA - Unspecified injury of head, initial encounter Disposition: Home, Self-Care Condition on Discharge: Good Instructions: How to Prevent Falls - Critical Care Critical Care Time: No Attestation: On , the high probability of a clinically significant, sudden or life threatening deterioration of the following system(s) required my full and direct attention, intervention and personal management. The time I documented below is in addition to time spent performing reported procedures but includes the following listed in this critical care notation. Medical Decision Making - Medical Records Medical records reviewed: Yes: I reviewed the patient's medical records. - Shan Inquiry Pt receiving controlled substance: No Vital Signs: 09/23/20 09:12 09/23/20 10:03 09/23/20 10:33 Temperature 97.7 F Temperature Source Oral Pulse Rate 54 L 54 L Pulse Rate [Left] 59 L Respiratory Rate 18 18 18 Blood Pressure 128/52 L 115/51 L Blood Pressure [Right Arm] 94/38 L Blood Pressure Mean 58 72 Blood Pressure Mean [Right Arm] 56 Blood Pressure Source [Right Arm] Automatic Cuff Blood Pressure Position [Right Arm] Supine 02 Sat by Pulse Oximetry 94 L 95 94 L Oxygen Delivery Method Room Air 09/23/20 11:01 09/23/20 11:31 Temperature Temperature Source Pulse Rate 66 56 L Pulse Rate [Left] Respiratory Rate 20 20 Blood Pressure 113/41 L 108/37 L Blood Pressure [Right Arm] Blood Pressure Mean 69 60 Blood Pressure Mean [Right Arm] Blood Pressure Source [Right Arm] Blood Pressure Position [Right Arm] 02 Sat by Pulse Oximetry 94 L 93 L Oxygen Delivery Method - CT Data CT Scan: Head Time Received: 12:[address] Reviewed: Yes: I have reviewed the patient's CT results, I have viewed the radiologist's interpretation Preliminary Findings: Normal/NAD Fall HPI - General Chief Complaint: Fall Stated Complaint: fall Time Seen by Provider: 09/23/20 09:15 Mode of Arrival: EMS Source of Information: EMS Limitations: Language Barrier Description of Symptoms (Recalled from ER Triage Doc. by RN): patient was sitting in wheelchair when she fell forward hitting head on floor. patient has laceration to right side of forehead. bleeding controlled. staff states that patient did not lose consciousness. patient moaning out loud/crying, and emotion state is basleine for patient. patient does answer questions with delay, and follow commands at this time - History of Present Illness HPI Narrative: female from local [facility] facility that presents with closed head injury after sustaining fall from her wheelchair just prior to arrival. Given advanced dementia and language barrier subjective assessment limited on the part of the patient. Fall was witnessed by nursing staff of the facility. No loss of consciousness. Patient is not on anticoagulants. - Related Data Home Medications Medication Instructions Recorded Confirmed Gabapentin [Gabapentin 300mg Cap] 300 mg PO TID 05/26/17 09/23/20 Levothyroxine Sodium [Synthroid 75 mcg PO DAILY 05/26/17 09/23/20 50mcg (0.05mg) tab] Losartan Potassium [Cozaar 100mg 100 mg PO DAILY 05/26/17 09/23/20 Tablets] acetaminophen 500 mg tablet 1,000 mg PO Q6H PRN 09/15/17 09/23/20 albuterol sulfate 90 mcg/actuation 1 puff INHALATION Q4-6H PRN 09/15/17 09/23/20 aerosol inhaler furosemide 40 mg tablet 40 mg PO BID 09/15/17 09/23/20 Ipratropium/Albuterol Sulfate 3 ml IH TID 09/06/18 09/23/20 [Iprat-Albut 0.5-3(2.5) mg/3 ml] Multivit with Calcium,Iron,Min 1 each PO DAILY 09/06/18 09/23/20 [Essential Daily] Metoprolol Tartrate [Lopressor 25 mg PO BID 11/20/18 09/23/20 25mg tablet] Sennosides [Senna] 17.2 mg PO HS 11/20/18 09/23/20 Citalopram Hydrobromide 10 mg PO DAILY 09/23/20 09/23/20 [Citalopram
[2020-09-23 10:03] VITALS: BP 128/52; PULSE 54; RESP 18; O2SAT 95
[2020-09-23 10:33] VITALS: BP 115/51; PULSE 54; RESP 18; O2SAT 94
--- NOTE | 2020-09-23 10:46 | PC.NURSE ---
patient had a bowel movement in CT. patient was cleaned up upon return to ED, and soiled clothing placed in belonging bag with patient. patient now resting comfortably in room at this time.
[2020-09-23 11:01] VITALS: BP 113/41; PULSE 66; RESP 20; O2SAT 94
[2020-09-23 11:31] VITALS: BP 108/37; PULSE 56; RESP 20; O2SAT 93
--- NOTE | 2020-09-23 11:57 | PC.NURSE ---
[facility] called ED and I updated RN on patient condition and that we were still waiting on results of CT imaging. Patient is currently stable and resting at this time.
--- NOTE | 2020-09-23 12:15 | PC.NURSE ---
This RN cleaned head wound and applied steri strips to affected area. patient tolerated procedure well. bacitracin applied and covered with 2x2 gauze. Calling update on CT imaging to [facility] at this time, doctor in the process of discharging patient and arranging transport for patient back to [facility].
[2020-09-23 12:27] VITALS: BP 102/4; PULSE 55; RESP 16; TEMP 36.7; O2SAT 95
--- NOTE | 2020-09-23 12:45 | PC.NURSE ---
EMS ARRIVED FOR TRANSPORT BACK TO [facility].
== END 2020-09-23 12:46 | disposition home or self-care (01) ==
PROVIDERS: Emergency Provider Emergency Medicine
DX: S09.90XA Unspecified injury of head, initial encounter (principal); W01.0XXA Fall on same level from slipping, tripping and stumbling without subsequent striking against object, initial encounter; Y92.129 Unspecified place in nursing home as the place of occurrence of the external cause; F03.90 Unspecified dementia, unspecified severity, without behavioral disturbance, psychotic disturbance, mood disturbance, and anxiety; J44.9 Chronic obstructive pulmonary disease, unspecified
CPT/HCPCS: 70450; 99283

== ENCOUNTER 2020-11-26 06:12 | Emergency (ER) | payer MEDICARE, OTHER, SELFPAY ==
[2020-11-26] VITALS (7 sets, daily range): BP systolic 115–149; BP diastolic 49–74; PULSE 56–68; RESP 15–20; TEMP 36.6–36.9; O2SAT 88–98; BMI 30.9
--- NOTE | 2020-11-26 06:13 | CT_ITS ---
PROCEDURE INFORMATION: Exam: CT Head Without Contrast Exam date and time: 11/26/2020 6:13 AM Age: 80 years old Clinical indication: Pain; Headache; Post-traumatic; Additional info: Fall TECHNIQUE: Imaging protocol: Computed tomography of the head without contrast. Radiation optimization: All CT scans at this facility use at least one of these dose optimization techniques: automated exposure control; mA and/or kV adjustment per patient size (includes targeted exams where dose is matched to clinical indication); or iterative reconstruction. COMPARISON: CT HEAD/BRAIN WO CON 09/23/2020 10:07 AM FINDINGS: Brain: Age related atrophic changes in the brain. No mass effect or midline shift. No intracranial hemorrhage. There is mild diffuse heterogeneity of the white matter attenuation, consistent with chronic white matter microvascular ischemic changes. No edema. No evidence of acute territorial ischemia. Cerebral ventricles: The ventricular system demonstrates mild diffuse compensatory enlargement. Paranasal sinuses: No acute findings. No fluid levels. Mastoid air cells: No significant mastoid effusion. Bones/joints: No acute fracture. Soft tissues: Mild left frontal scalp soft tissue swelling. IMPRESSION: 1. No acute intracranial findings. 2. Other chronic changes as described.
--- NOTE | 2020-11-26 06:13 | XR_ITS ---
PROCEDURE INFORMATION: Exam: XR Pelvis Exam date and time: 11/26/2020 6:13 AM Age: 80 years old Clinical indication: Pelvic pain; Additional info: Fall TECHNIQUE: Imaging protocol: XR pelvis. Views: 1 or 2 view. COMPARISON: CR XR PELVIS 1-2V 06/27/2019 7:16 PM FINDINGS: Bones/joints: Severe lumbar degenerative change. Moderate to severe bilateral hip and left greater than right sacroiliac degenerative change. No acute fracture or traumatic malalignment. Soft tissues: Unremarkable. IMPRESSION: No acute osseous abnormality.
--- NOTE | 2020-11-26 06:13 | CT_ITS ---
PROCEDURE INFORMATION: Exam: CT Cervical Spine Without Contrast Exam date and time: 11/26/2020 6:13 AM Age: 80 years old Clinical indication: Neck pain; Additional info: Fall TECHNIQUE: Imaging protocol: Computed tomography images of the cervical spine without contrast. Radiation optimization: All CT scans at this facility use at least one of these dose optimization techniques: automated exposure control; mA and/or kV adjustment per patient size (includes targeted exams where dose is matched to clinical indication); or iterative reconstruction. COMPARISON: CT CERVICAL SPINE WO CON 06/27/2019 7:20 PM FINDINGS: Bones/joints: Diffuse osteopenia. No acute fracture. Facets are normally aligned. Mild degenerative anterolisthesis of T4 on T5. Chronic appearing mild compression deformity of the superior endplate of C7. Discs/Spinal canal/Neural foramina: Multilevel degenerative facet arthropathy. There is [id number] degenerative disc disease throughout the cervical spine, most notable at C5-C6 and C6-C7. No significant central canal stenosis. Degenerative neural foraminal narrowing bilaterally at C3-C4, C4-C5 C5-C6 and on the right at C6-C7. Sinuses: Polypoid mucosal sinus thickening in the left maxillary sinus. Lungs: Calcified granuloma in the left lung apex. Soft tissues: No acute findings. IMPRESSION: 1. No acute osseous findings. 2. Multilevel degenerative changes as described with associated neural foraminal narrowing.
--- NOTE | 2020-11-26 06:13 | XR_ITS ---
PROCEDURE INFORMATION: Exam: XR Chest Exam date and time: 11/26/2020 6:13 AM Age: 80 years old Clinical indication: Pain; On breathing; Additional info: Fall TECHNIQUE: Imaging protocol: XR of the chest. Views: 1 view. COMPARISON: CR XR CHEST PORTABLE 06/27/2019 7:16 PM FINDINGS: Lungs are hyperinflated. Cardiac silhouette is not enlarged allowing for technique. Blunting of the right costophrenic sulcus is stable from old comparison radiographs and likely chronic traction/scarring. No convincing new pleural effusion. No pneumothorax. No appreciable acute fracture. IMPRESSION: No acute traumatic findings.
--- NOTE | 2020-11-26 07:57 | HMH.EDFALL ---
ED Disposition Clinical Impression: Concussion without loss of consciousness Qualifiers: Encounter type: initial encounter Qualified Code(s): S06.0X0A - Concussion without loss of consciousness, initial encounter Fall Qualifiers: Encounter type: initial encounter Qualified Code(s): W19.XXXA - Unspecified fall, initial encounter Disposition: Home, Self-Care Condition on Discharge: Good Instructions: DI for Concussion Referrals: Yassine Monique MD [Primary Care Provider] - - Critical Care Critical Care Time: No Attestation: On 11/26/20, the high probability of a clinically significant, sudden or life threatening deterioration of the following system(s) required my full and direct attention, intervention and personal management. The time I documented below is in addition to time spent performing reported procedures but includes the following listed in this critical care notation. Medical Decision Making - Medical Records Medical records reviewed: Yes: I reviewed the patient's medical records. - Shan Inquiry Pt receiving controlled substance: No Vital Signs: 11/26/20 06:00 Temperature 98.5 F Temperature Source Oral Respiratory Rate 15 02 Sat by Pulse Oximetry 92 L Oxygen Delivery Method Room Air - Radiology Data #1 Image(s): Chest, Pelvis Image Reviewed: Yes I have reviewed radiologist's interpretation Preliminary Findings: No Fracture Seen - CT Data CT Scan: Head, C-Spine Time Received: 08:[address] Reviewed: Yes: I have viewed the radiologist's interpretation Preliminary Findings: No Fracture Seen Medical Decision Narrative: fell at [facility] with no fx and stable exam Fall HPI - General Chief Complaint: Fall Stated Complaint: fall Time Seen by Provider: 11/26/20 06:30 Mode of Arrival: EMS Source of Information: Patient, EMS, Medical Record Limitations: Physical Limitations Description of Symptoms (Recalled from ER Triage Doc. by RN): FELL OUT OF BED, SUSTAINED A NOSE BLEED WHICH HAD SINCE RESOLVED AND A HEADACHE - History of Present Illness HPI Narrative: fell oob at [facility] complaint: fall Onset (ago): hour(s) Fall from: out of bed Fall witnessed: no Place fall occurred: [facility] Loss of consciousness: none Prolonged down time: no Location of injury: head Severity: moderate Associated symptoms (after fall): denies - Related Data Home Medications Medication Instructions Recorded Confirmed Gabapentin [Gabapentin 300mg Cap] 300 mg PO TID 05/26/17 09/23/20 Levothyroxine Sodium [Synthroid 75 mcg PO DAILY 05/26/17 09/23/20 50mcg (0.05mg) tab] Losartan Potassium [Cozaar 100mg 100 mg PO DAILY 05/26/17 09/23/20 Tablets] acetaminophen 500 mg tablet 1,000 mg PO Q6H PRN 09/15/17 09/23/20 albuterol sulfate 90 mcg/actuation 1 puff INHALATION Q4-6H PRN 09/15/17 09/23/20 aerosol inhaler furosemide 40 mg tablet 40 mg PO BID 09/15/17 09/23/20 Ipratropium/Albuterol Sulfate 3 ml IH TID 09/06/18 09/23/20 [Iprat-Albut 0.5-3(2.5) mg/3 ml] Multivit with Calcium,Iron,Min 1 each PO DAILY 09/06/18 09/23/20 [Essential Daily] Metoprolol Tartrate [Lopressor 25 mg PO BID 11/20/18 09/23/20 25mg tablet] Sennosides [Senna] 17.2 mg PO HS 11/20/18 09/23/20 Citalopram Hydrobromide 10 mg PO DAILY 09/23/20 09/23/20 [Citalopram 10mg Tablet] Potassium Chloride [Klor-con 20 20 meq PO DAILY 09/23/20 09/23/20 mEq tablet] polyethylene glycoL 3350 [Gavilax] 17 gm PO DAILY 09/23/20 09/23/20 Allergies Allergy/AdvReac Type Severity Reaction Status Date / Time ARTHRITIS DRUGS Allergy Mild Uncoded 09/23/20 09:41 [facility] History - Hepatitis A Screen Drug use history?: No High risk sexual behaviors?: No History of sexually transmitted infection?: No Currently employed?: No Childcare worker?: Yes Do you have indoor plumbing?: Yes Do you have electricity?: Yes Attestation statement:: This patient has been screened for Hepatitis A risk factors. I have rev
--- NOTE | 2020-11-26 09:04 | PC.NURSE ---
report given to [facility] at this time
== END 2020-11-26 09:37 | disposition home or self-care (01) ==
PROVIDERS: Emergency Provider Emergency Medicine; PCP Internal Medicine Adolescent Medicine
DX: S06.0X0A Concussion without loss of consciousness, initial encounter (principal); W06.XXXA Fall from bed, initial encounter; Y92.129 Unspecified place in nursing home as the place of occurrence of the external cause; J44.9 Chronic obstructive pulmonary disease, unspecified; Z87.891 Personal history of nicotine dependence
CPT/HCPCS: 70450; 71045; 72125; 72170; 99283

== ENCOUNTER → 2021-01-09 14:34 | Outpatient (CLI) | payer MEDICARE, OTHER, SELFPAY ==
[2021-01-09 14:38] LABS: Coronavirus 19, PCR Not Detected (NotDetected); Influenza A, PCR Not Detected (NotDetected); Influenza B, PCR Not Detected (NotDetected)
== END ==
PROVIDERS: Visit Provider Internal Medicine Adolescent Medicine
DX: Z20.822 Contact with and (suspected) exposure to COVID-19 (principal)
CPT/HCPCS: C9803; U0003; U0005